=== PATIENT | female | born 1940 | race Caucasian/White ===

== ENCOUNTER 2021-12-24 11:14 | Outpatient (CLI) | payer MEDICARE | END 2021-12-24 11:15 | disposition home or self-care (01) | LOC: BICMAMMO 11:14 | PROVIDERS: ATTEND Nurse Practitioner Family | DX: Z13.820 Encounter for screening for osteoporosis (principal); M85.89 Other specified disorders of bone density and structure, multiple sites | CPT/HCPCS: 77080 ==

== ENCOUNTER 2023-06-18 15:17 | Outpatient (CLI) | payer MEDICARE ==
[2023-06-18 17:03] LABS: Anion Gap 13 mmol/L (10-20); BUN (Urea Nitrogen) 15 mg/dL (9.8-20.1); Calc. Creatinine Clearance 0 mL/min (70-130); Calcium 10.2 mg/dL (7.8-10.44); Carbon Dioxide 27 mmol/L (23-31); Chloride 99 mmol/L (98-107); Estimated GFR 55; Glucose 95 mg/dL (83-110); Potassium 3.8 mmol/L (3.5-5.1); Sodium 135 mmol/L (136-145)
== END 2023-06-18 15:18 | disposition home or self-care (01) ==
LOC: LABBT 15:17
PROVIDERS: ATTEND Neurological Surgery
DX: Z01.818 Encounter for other preprocedural examination (principal); M43.16 Spondylolisthesis, lumbar region; M48.061 Spinal stenosis, lumbar region without neurogenic claudication
CPT/HCPCS: 80048; 85027; 85610; 85730; 86850; 86900; 86901; 93005; 93010

== ENCOUNTER 2023-06-19 06:06 | Inpatient (IN) | payer MEDICARE ==
[2023-06-18 16:50] LABS: Hematocrit 37.9 % (34.9-44.5); Hemoglobin 13.1 g/dL (12.0-15.5); Mean Corpuscular HGB CONC 34.6 g/dL (32.0-36.0); Mean Corpuscular Hemoglobin 31.3 pg (27.0-33.0); Mean Corpuscular Volume 90.7 fl (81.6-98.3); Mean Platelet Volume 10.7 fl (7.4-10.4); Platelet Count 288 10x3/uL (150-450); RBC Distribution Width 13.3 % (11.5-14.5); Red Blood Cell (RBC) Count 4.18 10x6/uL (3.90-5.03); White Blood Cell (WBC) Count 6.3 10x3/uL (3.5-10.5)
[2023-06-18 17:07] LABS: INR-International Normal Ratio 0.9; PTT 28.7 sec (22.0-33.0); Prothrombin Time 10.2 sec (9.5-12.1)
[2023-06-19] MEDS ORDERED: Thrombin 5000 UNITS/5 ML VIAL ONE ×2 (06:13→10:41)
[2023-06-19] MEDS ORDERED: Vancomycin 1 GM VIAL ONE ×2 (06:13→06:47)
[2023-06-19] MEDS ORDERED: EPINEPHrine 1 MG/ML AMP ONE (06:25)
[2023-06-19] MEDS ORDERED: Bupivacaine PF 0.5% 30 ML VIAL ONE (06:25)
[2023-06-19] MEDS ORDERED: LevoFLOXacin 500 mg/D5W 100 ML BAG ONE (06:44)
[2023-06-19] MEDS ORDERED: Clindamycin/D5W 900 mg/50 ml Premix Bag ONE (06:44)
[2023-06-19] MEDS ORDERED: Albuterol HFA (OR) 200 PUFF INH ONE (06:55)
[2023-06-19] MEDS ORDERED: SUGAMMADEX SODIUM 200 MG/2 ML VIAL ONE (06:55)
[2023-06-19] MEDS ORDERED: Albumin 5% 500 ML ONE (06:55)
[2023-06-19] MEDS ORDERED: Fentanyl 250 MCG/5 ML VIAL ONE ×2 (06:55→13:02)
[2023-06-19] MEDS ORDERED: HYDROmorphone 0.5 MG/0.5 ML SYRINGE ONE (06:55)
[2023-06-19] MEDS ORDERED: Ondansetron PF 4 MG/2 ML Vial ONE (07:10)
[2023-06-19] MEDS ORDERED: NEOSTIGMINE 3 MG/3 ML SYR 3 MG/3 ML SYRINGE ONE (07:10)
[2023-06-19] MEDS ORDERED: Dexamethasone 20 MG/5 ML VIAL ONE (07:10)
[2023-06-19] MEDS ORDERED: Glycopyrrolate 0.2 MG/ML 5 ML SYRINGE ONE (07:10)
[2023-06-19] MEDS ORDERED: Lidocaine 1% PF 5 ML VIAL ONE (07:10)
[2023-06-19] MEDS ORDERED: Vecuronium 10 MG VIAL ONE (07:10)
[2023-06-19] MEDS ORDERED: Rocuronium Bromide 10 MG/ML (10ML VIAL) ONE (07:10)
[2023-06-19] MEDS ORDERED: PROPOFOL 200 MG/20 ML VIAL ONE (07:10)
[2023-06-19] MEDS ORDERED: Phenylephrine 10 MG/ML VIAL ONE (08:03)
[2023-06-19] MEDS ORDERED: Promethazine HCl 25 MG/ML VIAL IM PRN ×2 (12:41→12:58)
[2023-06-19] MEDS ORDERED: Ondansetron HCl/PF 4 MG/2 ML Vial IVP PRN (12:41)
[2023-06-19] MEDS ORDERED: Milk Of Magnesia 30 ML UDCUP PO PRN (12:58)
[2023-06-19] MEDS ORDERED: Acetaminophen 325 MG TAB PO PRN (12:58)
[2023-06-19] MEDS ORDERED: Morphine 2 MG/ML VIAL SLOW IVP PRN (12:58)
[2023-06-19] MEDS ORDERED: Ondansetron PF 4 MG/2 ML Vial IVP PRN (12:58)
[2023-06-19] MEDS ORDERED: Bisacodyl 10 MG SUPP PR PRN (12:58)
[2023-06-19] MEDS ORDERED: tiZANidine HCl 4 MG TAB PO PRN (13:00)
[2023-06-19 14:41] VITALS: BMI 27.7
[2023-06-19] MEDS: CEFAZOLIN 2 GM in Sodium Chloride 0.9% 100 ML IVPB SCH ×2 (14:59→21:02)
[2023-06-19] MEDS ORDERED: Albuterol 200 PUFF (6.7GM INHALER) INH PRN (15:47)
[2023-06-19] MEDS ORDERED: HumaLOG 300 UNITS/3 ML VIAL SC PRN ×2 (15:49)
[2023-06-19] MEDS ORDERED: Dextrose 5% in Water 1,000 ML IV PRN (15:49)
[2023-06-19] MEDS ORDERED: Dextrose 50% Abboject 50 ML SYRINGE SLOW IVP PRN (15:49)
[2023-06-19] MEDS ORDERED: Glucagon 1 MG/ML KIT IM PRN (15:49)
[2023-06-19] MEDS: Gabapentin 400 MG CAP PO SCH ×2 (16:07→21:04)
[2023-06-19] MEDS: HYDROcodone/Acetaminophen 10/325 mg Tablet PO PRN (16:08)
[2023-06-19] MEDS: Sodium Chloride 0.9% 1,000 ML IV SCH (16:08)
[2023-06-19] MEDS ORDERED: Non-Formulary Item 1 EACH (Omeprazole Magnesium [Omeprazole Magnesium] 20 MG Capsule.Dr) PO SCH (21:00)
[2023-06-19] MEDS ORDERED: Atorvastatin Calcium 20 MG TAB PO SCH (21:00)
[2023-06-19] MEDS: Montelukast Sodium 10 mg Tablet PO SCH (21:04)
[2023-06-19] MEDS: HYDROcodone/Acetaminophen 7.5/325 mg Tablet PO PRN (21:06)
[2023-06-20] MEDS: Sodium Chloride 0.9% 1,000 ML IV SCH ×2 (03:47→17:03)
[2023-06-20] MEDS: Gabapentin 400 MG CAP PO SCH ×4 (04:47→21:15)
[2023-06-20] MEDS ORDERED: CEFAZOLIN 2 GM in Sodium Chloride 0.9% 100 ML IVPB SCH (05:00)
[2023-06-20 05:17] LABS: #Neutrophils 11.1 thou/uL (1.40-6.50); %Basophils 0.1 % (0.0-1.0); %Lymphocytes 7.4 % (21.0-51.0); %Monocytes 7.9 % (0.0-10.0); %Neutrophils 84.2 % (42.0-75.0); Hematocrit 26.1 % (36.0-47.0); Hemoglobin 8.5 g/dL (12.0-16.0); Mean Corpuscular HGB CONC 32.6 g/dL (32.0-36.0); Mean Corpuscular Hemoglobin 30.5 pg (27.0-31.0); Mean Corpuscular Volume 93.5 fl (78.0-98.0); Mean Platelet Volume 10.6 fL (7.4-10.4); Platelet Count 192 10x3/uL (130-400); RBC Distribution Width 13.7 % (11.5-14.5); Red Blood Cell (RBC) Count 2.79 mill/uL (4.20-5.40); White Blood Cell (WBC) Count 13.2 10x3/uL (4.8-10.8)
[2023-06-20 05:59] LABS: Anion Gap 12 mmol/L (10-20); BUN (Urea Nitrogen) 16 mg/dL (9.8-20.1); Calc. Creatinine Clearance 40 mL/min (70-130); Calcium 9.8 mg/dL (7.8-10.44); Carbon Dioxide 26 mmol/L (23-31); Chloride 98 mmol/L (98-107); Estimated GFR 49; Glucose 159 mg/dL (83-110); Magnesium 1.3 mg/dL (1.6-2.6); Potassium 3.8 mmol/L (3.5-5.1); Sodium 132 mmol/L (136-145)
[2023-06-20] MEDS: Mometasone 200 MCG HFA INHALER (RT USE) INH SCH ×2 (07:26→19:26)
[2023-06-20] MEDS ORDERED: Magnesium Sulfate 4 GM in Sodium Chloride 0.9% 250 ML 250 ML IVPB SCH (07:45)
[2023-06-20] MEDS ORDERED: Magnesium Sulfate In Water 4 GM in Premix 1 BAG IVPB SCH (08:00)
[2023-06-20] MEDS: Glimepiride 1 MG TAB PO SCH (08:34)
[2023-06-20] MEDS: HYDROcodone/Acetaminophen 7.5/325 mg Tablet PO PRN ×3 (08:34→17:03)
[2023-06-20] MEDS ORDERED: Hydrochlorothiazide 25 MG TAB PO SCH (09:00)
[2023-06-20] MEDS ORDERED: Lisinopril 20 MG TAB PO SCH (09:00)
[2023-06-20] MEDS ORDERED: Aspirin 81 mg Enteric Coated Tablet PO SCH (09:30)
[2023-06-20] MEDS ORDERED: Iopamidol-370 76% 500 ML MDV (1 ML CHARGE) ONE (10:38)
[2023-06-20 11:30] LABS: Magnesium 1.3 mg/dL (1.6-2.6)
[2023-06-20] MEDS ORDERED: Electrolyte Replacement Protocol FS PRN (12:15)
[2023-06-20] MEDS ORDERED: Electrolyte Replacement Protocol 1 EACH FS SCH (12:15)
[2023-06-20] MEDS ORDERED: Magnesium 2 GM/50 ML(in water) 2 GM in Premix 1 BAG IVPB SCH (17:00)
[2023-06-20] MEDS ORDERED: Atorvastatin Calcium 40 MG TAB PO SCH (21:00)
[2023-06-20] MEDS: Montelukast Sodium 10 mg Tablet PO SCH (21:15)
[2023-06-20] MEDS: HYDROcodone/Acetaminophen 10/325 mg Tablet PO PRN (21:15)
[2023-06-21] MEDS: HYDROcodone/Acetaminophen 7.5/325 mg Tablet PO PRN ×3 (03:43→14:55)
[2023-06-21] MEDS: Gabapentin 400 MG CAP PO SCH ×4 (05:29→14:55)
[2023-06-21] MEDS: Sodium Chloride 0.9% 1,000 ML IV SCH (05:32)
[2023-06-21] MEDS: Mometasone 200 MCG HFA INHALER (RT USE) INH SCH (06:49)
[2023-06-21 08:22] LABS: Hematocrit 33.8 % (36.0-47.0); Hemoglobin 11.1 g/dL (12.0-16.0); Platelet Count 189 10x3/uL (130-400)
[2023-06-21 08:32] LABS: Hemoglobin A1c 5.1 % (4.0-6.0)
[2023-06-21 08:44] LABS: Phosphorus 2.6 mg/dL (2.3-4.7)
[2023-06-21 08:45] LABS: Anion Gap 15 mmol/L (10-20); BUN (Urea Nitrogen) 16 mg/dL (9.8-20.1); Calc. Creatinine Clearance 39 mL/min (70-130); Calcium 9.9 mg/dL (7.8-10.44); Carbon Dioxide 26 mmol/L (23-31); Cardiac Risk 2.5 (Less than 4.5); Chloride 99 mmol/L (98-107); Cholesterol 174 mg/dl (< 200 Desired); Estimated GFR 48; Glucose 115 mg/dL (83-110); HDL Cholesterol 70 mg/dL (>60 Neg Risk); LDL Cholesterol, Calculated 82 mg/dL; Potassium 3.6 mmol/L (3.5-5.1); Sodium 136 mmol/L (136-145); Triglycerides 110 mg/dL (Less than 150)
[2023-06-21] MEDS ORDERED: Aspirin 81 mg Enteric Coated Tablet PO SCH (09:00)
[2023-06-21] MEDS: Glimepiride 1 MG TAB PO SCH (09:49)
[2023-06-21 16:13] VITALS: BP 117/61; TEMP 99
== END 2023-06-21 17:50 | disposition home or self-care (01) | DRG 453 ==
LOC: SDC 06:06 → SURG A 12:58 → 2SE 06-20 09:30 → OBSVTOIN 06-20 13:35
PROVIDERS: ADMIT Neurological Surgery; ATTEND Neurological Surgery
PROC: 0SG00AJ Fusion of Lumbar Vertebral Joint with Interbody Fusion Device, Posterior Approach, Anterior Column, Open Approach (ICD-10-PCS; principal; 2023-06-19)
PROC: 0SG0071 Fusion of Lumbar Vertebral Joint with Autologous Tissue Substitute, Posterior Approach, Posterior Column, Open Approach (ICD-10-PCS; 2023-06-19)
PROC: 0SG30AJ Fusion of Lumbosacral Joint with Interbody Fusion Device, Posterior Approach, Anterior Column, Open Approach (ICD-10-PCS; 2023-06-19)
PROC: 0SB20ZZ Excision of Lumbar Vertebral Disc, Open Approach (ICD-10-PCS; 2023-06-19)
PROC: 0SB40ZZ Excision of Lumbosacral Disc, Open Approach (ICD-10-PCS; 2023-06-19)
PROC: 3E033XZ Introduction of Vasopressor into Peripheral Vein, Percutaneous Approach (ICD-10-PCS; 2023-06-19)
PROC: 30233J1 Transfusion of Nonautologous Serum Albumin into Peripheral Vein, Percutaneous Approach (ICD-10-PCS; 2023-06-19)
PROC: 0SG3071 Fusion of Lumbosacral Joint with Autologous Tissue Substitute, Posterior Approach, Posterior Column, Open Approach (ICD-10-PCS; 2023-06-19)
PROC: 30233N1 Transfusion of Nonautologous Red Blood Cells into Peripheral Vein, Percutaneous Approach (ICD-10-PCS; 2023-06-20)
DX: M48.061 Spinal stenosis, lumbar region without neurogenic claudication (principal); I63.512 Cerebral infarction due to unspecified occlusion or stenosis of left middle cerebral artery; D62 Acute posthemorrhagic anemia; E87.1 Hypo-osmolality and hyponatremia; E83.42 Hypomagnesemia; I95.9 Hypotension, unspecified; M48.07 Spinal stenosis, lumbosacral region; M43.16 Spondylolisthesis, lumbar region; I10 Essential (primary) hypertension; E11.22 Type 2 diabetes mellitus with diabetic chronic kidney disease; G89.29 Other chronic pain; J45.909 Unspecified asthma, uncomplicated; H40.9 Unspecified glaucoma; Z98.41 Cataract extraction status, right eye; Z98.42 Cataract extraction status, left eye; Z98.51 Tubal ligation status; Z98.890 Other specified postprocedural states; Z90.710 Acquired absence of both cervix and uterus; Z90.89 Acquired absence of other organs; Z83.3 Family history of diabetes mellitus; Z82.49 Family history of ischemic heart disease and other diseases of the circulatory system; E78.00 Pure hypercholesterolemia, unspecified
CPT/HCPCS: 36415; 36416; 36430; 70450; 70496; 70498; 70551; 80048; 80061; 83036; 83735; 84100; 85014; 85018; 85025; 85027; 85049; 85610; 85730; 86850; 86900; 86901; 93306; 96365; 96367; A4314; C1713; C1889; G0378; J0171; J1100; J1170; J1815; J1956; J2370; J2405; J2704; J3010; J3370; J3475; J3490; J7050; P9016; P9045; Q9967; S0020

== ENCOUNTER 2023-06-22 11:06 | Inpatient (IN) | payer MEDICARE ==
[2023-06-22] MEDS ORDERED: HYDROcodone/Acetaminophen 5/325 mg Tablet ONE (11:50)
[2023-06-22] MEDS ORDERED: Aspirin Chewable 81 MG TAB ONE ×3 (11:51→11:59)
[2023-06-22 12:07] LABS: #Basophils 0.1 thou/uL (0.0-0.2); #Eosinphils 0.3 thou/uL (0.0-0.7); #Monocytes 1.4 thou/uL (0.11-0.59); #Neutrophils 8.7 thou/uL (1.40-6.50); %Basophils 0.4 % (0.0-1.0); %Eosinophils 2.4 % (0.0-10.0); %Monocytes 11.2 % (0.0-10.0); %Neutrophils 72.4 % (42.0-75.0); Hematocrit 33.4 % (36.0-47.0); Hemoglobin 10.9 g/dL (12.0-16.0); Mean Corpuscular HGB CONC 32.6 g/dL (32.0-36.0); Mean Corpuscular Hemoglobin 30.6 pg (27.0-31.0); Mean Corpuscular Volume 93.8 fl (78.0-98.0); Mean Platelet Volume 10.6 fL (7.4-10.4); Platelet Count 221 10x3/uL (130-400); RBC Distribution Width 15.9 % (11.5-14.5); Red Blood Cell (RBC) Count 3.56 mill/uL (4.20-5.40)
[2023-06-22 12:29] LABS: ALT (SGPT) 10 U/L (8-55); AST (SGOT) 33 U/L (5-34); Albumin 3.9 g/dL (3.4-4.8); Alkaline Phosphatase 46 U/L (40-110); Anion Gap 9 mmol/L (10-20); BUN (Urea Nitrogen) 18 mg/dL (9.8-20.1); Bilirubin, Total 1.3 mg/dL (0.2-1.2); Calc. Creatinine Clearance 0 mL/min (70-130); Calcium 9.8 mg/dL (7.8-10.44); Carbon Dioxide 30 mmol/L (23-31); Chloride 99 mmol/L (98-107); Estimated GFR 45; Globulin 2.6 g/dL (2.4-3.5); Glucose 83 mg/dL (83-110); Potassium 3.7 mmol/L (3.5-5.1); Protein, Total 6.5 g/dL (5.8-8.1); Sodium 134 mmol/L (136-145)
[2023-06-22 12:47] LABS: Prothrombin Time 13.9 sec (12.0-14.7)
[2023-06-22 12:48] LABS: PTT 53.6 sec (22.9-36.1)
[2023-06-22] MEDS ORDERED: hydrALAZINE 20 MG/ML VIAL SLOW IVP PRN (15:52)
[2023-06-22] MEDS ORDERED: Acetaminophen 650 MG Suppository PR PRN (15:52)
[2023-06-22] MEDS ORDERED: Dextrose 5% in Water 1,000 ML IV PRN (16:01)
[2023-06-22] MEDS ORDERED: Dextrose 50% Abboject 50 ML SYRINGE SLOW IVP PRN (16:01)
[2023-06-22] MEDS ORDERED: Glucagon 1 MG/ML KIT IM PRN (16:01)
[2023-06-22] MEDS ORDERED: Insulin Regular 300 UNITS/3 ML VIAL SC PRN ×2 (16:01)
[2023-06-22] MEDS ORDERED: Acetaminophen 325 MG TAB ONE ×2 (16:29→16:33)
[2023-06-22] MEDS ORDERED: Gabapentin 400 MG CAP ONE (16:29)
[2023-06-22] MEDS: Acetaminophen 325 MG TAB PO PRN ×2 (16:31→21:36)
[2023-06-22] MEDS: Gabapentin 400 MG CAP PO SCH ×2 (16:32→22:18)
[2023-06-22 19:55] VITALS: BMI 28.3
[2023-06-22] MEDS ORDERED: Atorvastatin Calcium 40 MG TAB PO SCH (21:00)
[2023-06-22] MEDS: Mometasone 200 MCG HFA INHALER (RT USE) INH SCH (21:29)
[2023-06-22] MEDS: Montelukast Sodium 10 mg Tablet PO SCH (21:36)
[2023-06-22] MEDS: Atorvastatin Calcium 40 MG TAB PO SCH (21:36)
[2023-06-23] MEDS: Gabapentin 400 MG CAP PO SCH ×4 (03:48→22:39)
[2023-06-23 05:16] LABS: #Eosinphils 0.4 thou/uL (0.0-0.7); #Monocytes 1.2 thou/uL (0.11-0.59); #Neutrophils 4.8 thou/uL (1.40-6.50); %Basophils 0.5 % (0.0-1.0); %Eosinophils 4.9 % (0.0-10.0); %Lymphocytes 19.3 % (21.0-51.0); %Monocytes 14.6 % (0.0-10.0); %Neutrophils 60.1 % (42.0-75.0); Hematocrit 32.3 % (36.0-47.0); Hemoglobin 10.7 g/dL (12.0-16.0); Mean Corpuscular HGB CONC 33.1 g/dL (32.0-36.0); Mean Corpuscular Volume 93.6 fl (78.0-98.0); Mean Platelet Volume 10.4 fL (7.4-10.4); Platelet Count 234 10x3/uL (130-400); RBC Distribution Width 15.4 % (11.5-14.5); Red Blood Cell (RBC) Count 3.45 mill/uL (4.20-5.40)
[2023-06-23 05:41] LABS: Anion Gap 14 mmol/L (10-20); BUN (Urea Nitrogen) 16 mg/dL (9.8-20.1); Calc. Creatinine Clearance 47 mL/min (70-130); Calcium 9.4 mg/dL (7.8-10.44); Carbon Dioxide 27 mmol/L (23-31); Cardiac Risk 2.5 (Less than 4.5); Chloride 101 mmol/L (98-107); Cholesterol 155 mg/dl (< 200 Desired); Estimated GFR 54; Glucose 87 mg/dL (83-110); HDL Cholesterol 61 mg/dL (>60 Neg Risk); LDL Cholesterol, Calculated 75 mg/dL; Potassium 3.7 mmol/L (3.5-5.1); Sodium 138 mmol/L (136-145); Triglycerides 95 mg/dL (Less than 150)
[2023-06-23] MEDS ORDERED: Acetaminophen/Codeine 30-300mg Tablet PO PRN (06:27)
[2023-06-23] MEDS: Mometasone 200 MCG HFA INHALER (RT USE) INH SCH ×2 (07:54→18:55)
[2023-06-23] MEDS ORDERED: Aspirin 81 mg Enteric Coated Tablet PO SCH (09:00)
[2023-06-23] MEDS: Aspirin 325 mg Enteric Coated Tablet PO SCH (09:32)
[2023-06-23] MEDS ORDERED: LevoFLOXacin 500 mg/D5W 500 MG in Premix 1 BAG IVPB SCH (13:45)
[2023-06-23] MEDS ORDERED: Clindamycin/D5W 900 MG in Premix 1 BAG IVPB SCH (13:45)
[2023-06-23] MEDS ORDERED: fentaNYL PF 100 MCG/2 ML SYRINGE ONE (15:35)
[2023-06-23] MEDS ORDERED: Phenylephrine 10 MG/ML VIAL ONE (15:36)
[2023-06-23] MEDS ORDERED: Thrombin 5000 UNITS/5 ML VIAL ONE (19:05)
[2023-06-23] MEDS ORDERED: Clindamycin/D5W 900 mg/50 ml Premix Bag ONE (19:10)
[2023-06-23] MEDS ORDERED: LevoFLOXacin 500 mg/D5W 100 ML BAG ONE (19:10)
[2023-06-23] MEDS ORDERED: Vancomycin 1 GM VIAL ONE ×2 (19:12→20:33)
[2023-06-23] MEDS ORDERED: Ondansetron PF 4 MG/2 ML Vial ONE (19:55)
[2023-06-23] MEDS ORDERED: Dexamethasone 20 MG/5 ML VIAL ONE (19:55)
[2023-06-23] MEDS ORDERED: PHENYLEPHRINE-NS 100 MCG/ML 10 ML SYRINGE ONE (19:55)
[2023-06-23] MEDS ORDERED: PROPOFOL 200 MG/20 ML VIAL ONE (19:55)
[2023-06-23] MEDS ORDERED: Rocuronium Bromide 10 MG/ML (10ML VIAL) ONE (19:55)
[2023-06-23] MEDS ORDERED: Lidocaine 1% PF 5 ML VIAL ONE (19:55)
[2023-06-23] MEDS ORDERED: EPINEPHrine 1 MG/ML AMP ONE (20:29)
[2023-06-23] MEDS ORDERED: Bupivacaine PF 0.5% 30 ML VIAL ONE (20:29)
[2023-06-23] MEDS ORDERED: Ondansetron HCl/PF 4 MG/2 ML Vial IVP PRN (20:32)
[2023-06-23] MEDS ORDERED: Promethazine HCl 25 MG/ML VIAL IM PRN (20:32)
[2023-06-23] MEDS ORDERED: SUGAMMADEX SODIUM 200 MG/2 ML VIAL ONE (20:34)
[2023-06-23] MEDS: Acetaminophen 325 MG TAB PO PRN (22:39)
[2023-06-23] MEDS: Atorvastatin Calcium 40 MG TAB PO SCH (22:39)
[2023-06-23] MEDS: Montelukast Sodium 10 mg Tablet PO SCH (22:40)
[2023-06-24] MEDS: Gabapentin 400 MG CAP PO SCH ×4 (05:37→21:06)
[2023-06-24] MEDS ORDERED: Clindamycin/D5W 900 MG in Premix 1 BAG IVPB SCH ×2 (06:00→14:00)
[2023-06-24] MEDS: Mometasone 200 MCG HFA INHALER (RT USE) INH SCH ×2 (06:21→18:57)
[2023-06-24] MEDS: Aspirin 325 mg Enteric Coated Tablet PO SCH (09:50)
[2023-06-24] MEDS ORDERED: Acetaminophen 325 MG TAB PO PRN (14:45)
[2023-06-24] MEDS: Clindamycin 150 MG CAP PO SCH ×2 (15:18→21:06)
[2023-06-24] MEDS: Acetaminophen 325 MG TAB PO SCH ×2 (17:21→23:47)
[2023-06-24 17:39] LABS: INR-International Normal Ratio 1.1; PTT 47.5 sec (22.9-36.1); Prothrombin Time 14.3 sec (12.0-14.7)
[2023-06-24] MEDS ORDERED: LevoFLOXacin 500 mg/D5W 500 MG in Premix 1 BAG IVPB SCH (18:00)
[2023-06-24 20:26] LABS: PT - Undiluted 14.3 sec (12.0-14.7); PT 1:1 37C-90 min. Incubation 13.1 sec (12.0-14.7); PTT - Undiluted 47.5 sec (22.9-36.1); PTT 1:1 Mix 34.4 sec (22.9-36.1)
[2023-06-24] MEDS: Atorvastatin Calcium 40 MG TAB PO SCH (21:06)
[2023-06-24] MEDS: Montelukast Sodium 10 mg Tablet PO SCH (21:06)
[2023-06-25] MEDS: Gabapentin 400 MG CAP PO SCH ×4 (03:27→21:07)
[2023-06-25] MEDS: Acetaminophen 325 MG TAB PO SCH ×4 (06:13→23:02)
[2023-06-25] MEDS: Clindamycin 150 MG CAP PO SCH ×3 (06:13→21:07)
[2023-06-25] MEDS: Mometasone 200 MCG HFA INHALER (RT USE) INH SCH ×2 (08:18→19:14)
[2023-06-25] MEDS: Aspirin 325 mg Enteric Coated Tablet PO SCH (10:01)
[2023-06-25] MEDS: Calcium Carbonate 500 MG ChewTAB PO PRN (16:20)
[2023-06-25] MEDS: Atorvastatin Calcium 40 MG TAB PO SCH (21:07)
[2023-06-25] MEDS: Montelukast Sodium 10 mg Tablet PO SCH (21:07)
[2023-06-26] MEDS: Gabapentin 400 MG CAP PO SCH ×4 (04:45→22:59)
[2023-06-26] MEDS: Acetaminophen 325 MG TAB PO SCH ×4 (06:28→22:59)
[2023-06-26] MEDS: Clindamycin 150 MG CAP PO SCH ×3 (06:29→20:59)
[2023-06-26] MEDS: Mometasone 200 MCG HFA INHALER (RT USE) INH SCH ×2 (07:33→19:45)
[2023-06-26] MEDS: Aspirin 325 mg Enteric Coated Tablet PO SCH (08:41)
[2023-06-26] MEDS ORDERED: Scopolamine 1 mg/72 hour Patch TOP PRN (13:51)
[2023-06-26] MEDS ORDERED: LevoFLOXacin 750 mg/D5W 750 MG in Premix 1 BAG IVPB SCH (18:00)
[2023-06-26] MEDS: Montelukast Sodium 10 mg Tablet PO SCH (20:59)
[2023-06-26] MEDS: Atorvastatin Calcium 40 MG TAB PO SCH (20:59)
[2023-06-26] MEDS: Calcium Carbonate 500 MG ChewTAB PO PRN (21:07)
[2023-06-26] MEDS: Ondansetron PF 4 MG/2 ML Vial IVP PRN (21:31)
[2023-06-27] MEDS: Gabapentin 400 MG CAP PO SCH ×5 (03:33→21:21)
[2023-06-27] MEDS: Acetaminophen 325 MG TAB PO SCH ×3 (06:10→17:13)
[2023-06-27] MEDS: Ondansetron ODT 4 MG TAB PO PRN (06:10)
[2023-06-27] MEDS: Clindamycin 150 MG CAP PO SCH ×3 (06:11→21:21)
[2023-06-27] MEDS: Mometasone 200 MCG HFA INHALER (RT USE) INH SCH ×2 (07:33→20:18)
[2023-06-27] MEDS: Aspirin 325 mg Enteric Coated Tablet PO SCH (09:09)
[2023-06-27] MEDS: Ondansetron PF 4 MG/2 ML Vial IVP PRN (14:06)
[2023-06-27] MEDS: Montelukast Sodium 10 mg Tablet PO SCH (21:20)
[2023-06-27] MEDS: Atorvastatin Calcium 40 MG TAB PO SCH (21:20)
[2023-06-28] MEDS: Acetaminophen 325 MG TAB PO SCH ×4 (00:40→18:27)
[2023-06-28] MEDS: Ondansetron ODT 4 MG TAB PO PRN (04:06)
[2023-06-28] MEDS: Gabapentin 400 MG CAP PO SCH ×4 (04:07→22:39)
[2023-06-28] MEDS: Clindamycin 150 MG CAP PO SCH ×2 (06:31→15:29)
[2023-06-28] MEDS: Mometasone 200 MCG HFA INHALER (RT USE) INH SCH ×2 (07:35→17:41)
[2023-06-28] MEDS ORDERED: Promethazine HCl 12.5 MG in Sodium Chloride 0.9% 50 ML IVPB PRN (07:50)
[2023-06-28] MEDS: Aspirin 325 mg Enteric Coated Tablet PO SCH (08:50)
[2023-06-28 14:54] LABS: #Basophils 0.1 thou/uL (0.0-0.2); #Eosinphils 0.4 thou/uL (0.0-0.7); #Neutrophils 4.7 thou/uL (1.40-6.50); %Basophils 0.7 % (0.0-1.0); %Eosinophils 5.5 % (0.0-10.0); %Lymphocytes 21.8 % (21.0-51.0); %Monocytes 12.4 % (0.0-10.0); %Neutrophils 58.6 % (42.0-75.0); Hematocrit 36.5 % (36.0-47.0); Hemoglobin 11.9 g/dL (12.0-16.0); Mean Corpuscular HGB CONC 32.6 g/dL (32.0-36.0); Mean Corpuscular Hemoglobin 30.4 pg (27.0-31.0); Mean Corpuscular Volume 93.1 fl (78.0-98.0); Mean Platelet Volume 9.8 fL (7.4-10.4); Platelet Count 357 10x3/uL (130-400); RBC Distribution Width 14.5 % (11.5-14.5); Red Blood Cell (RBC) Count 3.92 mill/uL (4.20-5.40)
[2023-06-28 15:16] LABS: Anion Gap 15 mmol/L (10-20); BUN (Urea Nitrogen) 13 mg/dL (9.8-20.1); Calc. Creatinine Clearance 43 mL/min (70-130); Calcium 10.1 mg/dL (7.8-10.44); Carbon Dioxide 26 mmol/L (23-31); Chloride 99 mmol/L (98-107); Estimated GFR 50; Glucose 98 mg/dL (83-110); Potassium 3.8 mmol/L (3.5-5.1); Sodium 136 mmol/L (136-145)
[2023-06-28] MEDS: Calcium Carbonate 500 MG ChewTAB PO PRN (15:32)
[2023-06-28] MEDS: LevoFLOXacin 750 MG TAB PO SCH ×2 (18:27→18:31)
[2023-06-28] MEDS: Montelukast Sodium 10 mg Tablet PO SCH (22:40)
[2023-06-28] MEDS: Atorvastatin Calcium 40 MG TAB PO SCH (22:40)
[2023-06-29] MEDS: Acetaminophen 325 MG TAB PO SCH ×4 (01:13→17:36)
[2023-06-29] MEDS: Gabapentin 400 MG CAP PO SCH ×4 (05:22→21:25)
[2023-06-29] MEDS: Calcium Carbonate 500 MG ChewTAB PO PRN ×2 (06:33→21:24)
[2023-06-29] MEDS: Ondansetron PF 4 MG/2 ML Vial IVP PRN (06:33)
[2023-06-29] MEDS ORDERED: Ondansetron ODT 4 MG TAB PO PRN (06:39)
[2023-06-29] MEDS: Mometasone 200 MCG HFA INHALER (RT USE) INH SCH ×2 (07:59→18:58)
[2023-06-29] MEDS: Aspirin 325 mg Enteric Coated Tablet PO SCH (09:30)
[2023-06-29] MEDS: Sulfameth/Trimethoprim DS 800-160mg TAB PO SCH ×2 (09:32→21:24)
[2023-06-29 17:36] LABS: Bilirubin Negative (Negative); Blood, Urine Negative (Negative); Clarity Clear (Clear); Glucose, Urine (Dipstick) Normal (Negative); Ketone, Urine 10 mg/dL (Negative); Leukocyte Negative Leu/uL (Negative); Nitrite Negative (Negative); Protein, Urine (Dipstick) Negative (Neg-Trace); Specific Gravity, Urine 1.015 (1.002-1.036); Urobilinogen Normal mg/dL (Less than 2); pH, Urine 6.5 (5.0-9.0)
[2023-06-29] MEDS: Atorvastatin Calcium 40 MG TAB PO SCH (21:24)
[2023-06-29] MEDS: Montelukast Sodium 10 mg Tablet PO SCH (21:24)
[2023-06-30] MEDS: Acetaminophen 325 MG TAB PO SCH ×2 (00:45→06:19)
[2023-06-30] MEDS: diphenhydrAMINE 30 GM TUBE TOP PRN ×2 (04:29→09:33)
[2023-06-30] MEDS: Gabapentin 400 MG CAP PO SCH ×2 (04:29→09:22)
[2023-06-30] MEDS ORDERED: LevoFLOXacin 750 MG TAB PO SCH (06:00)
[2023-06-30] MEDS: Mometasone 200 MCG HFA INHALER (RT USE) INH SCH (07:48)
[2023-06-30 08:37] VITALS: BP 163/81; TEMP 97.7
[2023-06-30 09:13] LABS: Prothrombin Time 13.9 sec (12.0-14.7)
[2023-06-30 09:14] LABS: PTT 33.7 sec (22.9-36.1)
[2023-06-30] MEDS: Aspirin 325 mg Enteric Coated Tablet PO SCH (09:22)
[2023-06-30] MEDS: Sulfameth/Trimethoprim DS 800-160mg TAB PO SCH (09:22)
== END 2023-06-30 12:44 | disposition home or self-care (01) | DRG 907 ==
LOC: ERS 11:06 → ERHOLD 14:28 → 2SW 20:08 → OBSVTOIN 06-23 12:37 → MSONC 06-24 16:19
PROVIDERS: ADMIT Hospitalist; ATTEND Internal Medicine
PROC: 4A00X4Z Measurement of Central Nervous Electrical Activity, External Approach (ICD-10-PCS; principal; 2023-06-23)
PROC: 00CU0ZZ Extirpation of Matter from Spinal Canal, Open Approach (ICD-10-PCS; 2023-06-23)
DX: G97.61 Postprocedural hematoma of a nervous system organ or structure following a nervous system procedure (principal); G95.19 Other vascular myelopathies; G97.63 Postprocedural seroma of a nervous system organ or structure following a nervous system procedure; R53.1 Weakness; R33.9 Retention of urine, unspecified; E11.9 Type 2 diabetes mellitus without complications; I10 Essential (primary) hypertension; E78.5 Hyperlipidemia, unspecified; G89.29 Other chronic pain; Z88.0 Allergy status to penicillin; Z79.899 Other long term (current) drug therapy; Z79.82 Long term (current) use of aspirin; J45.909 Unspecified asthma, uncomplicated; Z90.710 Acquired absence of both cervix and uterus; Z90.89 Acquired absence of other organs; Z98.890 Other specified postprocedural states; M54.50 Low back pain, unspecified; R79.1 Abnormal coagulation profile; R11.0 Nausea; T36.8X5A Adverse effect of other systemic antibiotics, initial encounter
CPT/HCPCS: 36415; 36416; 70450; 70551; 72148; 80048; 80053; 80061; 81003; 84443; 85025; 85240; 85250; 85610; 85611; 85730; 85732; 93005; 94760; 95711; 95819; 95957; G0378; J0171; J1100; J1956; J2370; J2405; J2550; J2704; J3370; J3490; Q0162; S0020

== ENCOUNTER 2023-07-31 12:13 | Inpatient (IN) | payer MEDICARE ==
[2023-07-31] MEDS ORDERED: Iopamidol-370 76% 500 ML MDV (1 ML CHARGE) ONE (13:54)
[2023-07-31] MEDS ORDERED: Metoclopramide HCl 10 MG (2 mL) VIAL ONE (13:57)
[2023-07-31] MEDS ORDERED: diphenhydrAMINE 50 MG/ML VIAL ONE (13:57)
[2023-07-31 14:07] LABS: #Eosinphils 0.1 thou/uL (0.0-0.7); #Monocytes 0.8 thou/uL (0.11-0.59); #Neutrophils 5.5 thou/uL (1.40-6.50); %Basophils 0.5 % (0.0-1.0); %Lymphocytes 17.8 % (21.0-51.0); %Monocytes 9.8 % (0.0-10.0); %Neutrophils 70.8 % (42.0-75.0); Hematocrit 43.5 % (36.0-47.0); Hemoglobin 14.2 g/dL (12.0-16.0); Mean Corpuscular HGB CONC 32.6 g/dL (32.0-36.0); Mean Corpuscular Hemoglobin 29.3 pg (27.0-31.0); Mean Corpuscular Volume 89.7 fl (78.0-98.0); Mean Platelet Volume 11.2 fL (7.4-10.4); Platelet Count 302 10x3/uL (130-400); Red Blood Cell (RBC) Count 4.85 mill/uL (4.20-5.40); White Blood Cell (WBC) Count 7.7 10x3/uL (4.8-10.8)
[2023-07-31 14:28] LABS: ALT (SGPT) 51 U/L (8-55); AST (SGOT) 67 U/L (5-34); Albumin 4.2 g/dL (3.4-4.8); Alkaline Phosphatase 109 U/L (40-110); Anion Gap 17 mmol/L (10-20); BUN (Urea Nitrogen) 10 mg/dL (9.8-20.1); Bilirubin, Total 1.3 mg/dL (0.2-1.2); Calc. Creatinine Clearance 0 mL/min (70-130); Calcium 11.1 mg/dL (7.8-10.44); Carbon Dioxide 29 mmol/L (23-31); Chloride 91 mmol/L (98-107); Estimated GFR 34; Globulin 3.8 g/dL (2.4-3.5); Glucose 141 mg/dL (83-110); Lipase 34 U/L (8-78); Potassium 3.1 mmol/L (3.5-5.1); Sodium 134 mmol/L (136-145)
[2023-07-31 14:32] LABS: Troponin I Less than 0.010 ng/mL (< 0.028)
[2023-07-31 15:57] LABS: Bacteria/HPF None Seen HPF (None Seen); Bilirubin Negative (Negative); Blood, Urine Negative (Negative); CAUTI Indications for Culture Pelvic or flank pain; Clarity Clear (Clear); Glucose, Urine (Dipstick) Normal (Negative); Ketone, Urine Negative (Negative); Leukocyte 25 Leu/uL (Negative); Nitrite Negative (Negative); Protein, Urine (Dipstick) Negative (Neg-Trace); RBC/HPF 0-3 HPF (0-3); Specific Gravity, Urine 1.004 (1.002-1.036); Squamous Epithelial 0-3 HPF (0-3); Urobilinogen Normal mg/dL (Less than 2); WBC/HPF 0-3 HPF (0-3)
[2023-07-31 16:01] LABS: Urine Culture Reflex No No
[2023-07-31] MEDS ORDERED: Vancomycin HCl 125 MG Capsule PO SCH ×2 (20:00)
[2023-07-31] MEDS ORDERED: Albuterol 200 PUFF (6.7GM INHALER) INH PRN (20:17)
[2023-07-31] MEDS: Gabapentin 400 MG CAP PO SCH (22:00)
[2023-07-31] MEDS: Dextrose 5%-Lactated Ringers 1,000 ML IV SCH (22:16)
[2023-07-31 22:43] VITALS: BMI 22.8
[2023-08-01] MEDS: Ondansetron PF 4 MG/2 ML Vial IVP PRN ×2 (00:15→09:38)
[2023-08-01] MEDS: Montelukast Sodium 10 mg Tablet PO SCH ×2 (00:16→22:15)
[2023-08-01] MEDS ORDERED: Promethazine 25 MG TAB PO SCH (02:00)
[2023-08-01] MEDS ORDERED: Promethazine HCl 12.5 MG in Sodium Chloride 0.9% 50 ML IVPB SCH (02:00)
[2023-08-01] MEDS: Vancomycin HCl 125 MG Capsule PO SCH ×4 (02:55→22:15)
[2023-08-01] MEDS: Gabapentin 400 MG CAP PO SCH ×4 (03:07→22:15)
[2023-08-01] MEDS ORDERED: Prochlorperazine Edisylate 10 MG in Sodium Chloride 0.9% 50 ML IVPB SCH (05:00)
[2023-08-01] MEDS: Mometasone 200 MCG HFA INHALER (RT USE) INH SCH ×2 (07:44→18:35)
[2023-08-01] MEDS ORDERED: Atorvastatin Calcium 40 MG TAB PO SCH (09:00)
[2023-08-01] MEDS: Dextrose 5%-Lactated Ringers 1,000 ML IV SCH ×3 (09:32→22:10)
[2023-08-01] MEDS: metroNIDAZOLE 500 MG in Premix 1 BAG IVPB SCH ×3 (13:57→23:26)
[2023-08-02] MEDS: Gabapentin 400 MG CAP PO SCH ×3 (01:22→13:13)
[2023-08-02] MEDS: Vancomycin HCl 125 MG Capsule PO SCH ×4 (01:22→20:12)
[2023-08-02] MEDS: metroNIDAZOLE 500 MG in Premix 1 BAG IVPB SCH ×3 (05:43→21:27)
[2023-08-02] MEDS: Mometasone 200 MCG HFA INHALER (RT USE) INH SCH ×2 (06:37→19:41)
[2023-08-02] MEDS: Dextrose 5%-Lactated Ringers 1,000 ML IV SCH (15:55)
[2023-08-02] MEDS: Montelukast Sodium 10 mg Tablet PO SCH (20:12)
[2023-08-02] MEDS ORDERED: hydrALAZINE 20 MG/ML VIAL SLOW IVP SCH (22:45)
[2023-08-03] MEDS: hydrOXYzine Pamoate 25 mg Capsule PO SCH ×2 (00:59→01:27)
[2023-08-03] MEDS: Vancomycin HCl 125 MG Capsule PO SCH ×4 (03:00→20:01)
[2023-08-03] MEDS ORDERED: Prochlorperazine Edisylate 10 MG in Sodium Chloride 0.9% 50 ML IVPB PRN (03:04)
[2023-08-03] MEDS: Dextrose 5%-Lactated Ringers 1,000 ML IV SCH ×2 (04:01→16:54)
[2023-08-03] MEDS: metroNIDAZOLE 500 MG in Premix 1 BAG IVPB SCH ×3 (05:26→22:10)
[2023-08-03 07:40] LABS: Anion Gap 14 mmol/L (10-20); BUN (Urea Nitrogen) 5 mg/dL (9.8-20.1); Calc. Creatinine Clearance 45 mL/min (70-130); Carbon Dioxide 26 mmol/L (23-31); Chloride 99 mmol/L (98-107); Sodium 137 mmol/L (136-145)
[2023-08-03 07:41] LABS: ALT (SGPT) 34 U/L (8-55); AST (SGOT) 35 U/L (5-34); Albumin 3.6 g/dL (3.4-4.8); Alkaline Phosphatase 94 U/L (40-110); Bilirubin, Total 1.3 mg/dL (0.2-1.2); Calcium 9.3 mg/dL (7.8-10.44); Estimated GFR 67; Globulin 3.2 g/dL (2.4-3.5); Glucose 145 mg/dL (83-110); Protein, Total 6.8 g/dL (5.8-8.1)
[2023-08-03] MEDS ORDERED: Lorazepam 2 MG/ML VIAL SLOW IVP SCH (07:45)
[2023-08-03 07:47] LABS: Potassium 2.4 mmol/L (3.5-5.1)
[2023-08-03] MEDS: Mometasone 200 MCG HFA INHALER (RT USE) INH SCH ×2 (08:00→18:54)
[2023-08-03] MEDS: Potassium Chloride 20 MEQ in Premix 1 BAG IVPB SCH ×4 (08:19→15:14)
[2023-08-03] MEDS ORDERED: Ondansetron PF 4 MG/2 ML Vial IVP SCH (12:15)
[2023-08-03] MEDS ORDERED: Metoclopramide HCl 10 MG (2 mL) VIAL IVP SCH (14:00)
[2023-08-03] MEDS ORDERED: Electrolyte Replacement Protocol 1 EACH FS SCH (17:34)
[2023-08-03] MEDS: Montelukast Sodium 10 mg Tablet PO SCH (20:01)
[2023-08-03] MEDS: Metoclopramide HCl 10 MG (2 mL) VIAL IVP SCH (20:01)
[2023-08-03] MEDS: Ondansetron PF 4 MG/2 ML Vial IVP SCH (20:01)
[2023-08-04] MEDS: Vancomycin HCl 125 MG Capsule PO SCH ×4 (02:47→20:36)
[2023-08-04] MEDS: metroNIDAZOLE 500 MG in Premix 1 BAG IVPB SCH ×3 (05:27→22:16)
[2023-08-04] MEDS: Mometasone 200 MCG HFA INHALER (RT USE) INH SCH ×2 (07:31→18:32)
[2023-08-04] MEDS: Dextrose 5%-Lactated Ringers 1,000 ML IV SCH ×2 (07:51→22:16)
[2023-08-04] MEDS: Metoclopramide HCl 10 MG (2 mL) VIAL IVP SCH ×2 (07:52→20:36)
[2023-08-04] MEDS: Ondansetron PF 4 MG/2 ML Vial IVP SCH ×2 (07:52→15:40)
[2023-08-04] MEDS ORDERED: Magnesium 2 GM/50 ML(in water) 2 GM in Premix 1 BAG IVPB SCH (08:00)
[2023-08-04 08:29] LABS: Anion Gap 13 mmol/L (10-20); BUN (Urea Nitrogen) 11 mg/dL (9.8-20.1); Calc. Creatinine Clearance 40 mL/min (70-130); Calcium 8.9 mg/dL (7.8-10.44); Carbon Dioxide 24 mmol/L (23-31); Chloride 104 mmol/L (98-107); Estimated GFR 57; Glucose 153 mg/dL (83-110); Potassium 2.9 mmol/L (3.5-5.1); Sodium 138 mmol/L (136-145)
[2023-08-04] MEDS: Amino Acids 4.25 %/Dextrose 5% 1,000 ML IV SCH ×2 (08:47→23:43)
[2023-08-04] MEDS: Potassium Chloride 20 MEQ TAB PO SCH ×2 (12:02→15:32)
[2023-08-04] MEDS: Montelukast Sodium 10 mg Tablet PO SCH (20:36)
[2023-08-04] MEDS ORDERED: Promethazine HCl 25 MG in Sodium Chloride 0.9% 50 ML IVPB PRN (22:42)
[2023-08-04] MEDS: Prochlorperazine Edisylate 10 MG in Sodium Chloride 0.9% 50 ML IVPB PRN (23:25)
[2023-08-05] MEDS: Loperamide HCl 2 MG CAP PO PRN (00:48)
[2023-08-05] MEDS: Vancomycin HCl 125 MG Capsule PO SCH ×4 (02:56→21:54)
[2023-08-05] MEDS: Ondansetron PF 4 MG/2 ML Vial IVP SCH ×3 (02:57→21:53)
[2023-08-05] MEDS: metroNIDAZOLE 500 MG in Premix 1 BAG IVPB SCH ×3 (05:19→21:54)
[2023-08-05] MEDS: Mometasone 200 MCG HFA INHALER (RT USE) INH SCH ×2 (06:48→19:20)
[2023-08-05 07:29] LABS: Anion Gap 13 mmol/L (10-20); BUN (Urea Nitrogen) 19 mg/dL (9.8-20.1); Calc. Creatinine Clearance 48 mL/min (70-130); Calcium 8.9 mg/dL (7.8-10.44); Carbon Dioxide 24 mmol/L (23-31); Chloride 101 mmol/L (98-107); Estimated GFR 72; Glucose 130 mg/dL (83-110); Potassium 2.9 mmol/L (3.5-5.1); Sodium 135 mmol/L (136-145)
[2023-08-05] MEDS ORDERED: Dextrose 50% Abboject 50 ML SYRINGE SLOW IVP PRN (09:08)
[2023-08-05] MEDS ORDERED: HumaLOG 300 UNITS/3 ML VIAL SC PRN (09:08)
[2023-08-05] MEDS ORDERED: Dextrose 5% in Water 1,000 ML IV PRN (09:08)
[2023-08-05] MEDS ORDERED: Glucagon 1 MG/ML KIT IM PRN (09:08)
[2023-08-05] MEDS: Metoclopramide HCl 10 MG (2 mL) VIAL IVP SCH ×3 (10:06→18:25)
[2023-08-05] MEDS: Potassium Chloride 20 MEQ in Premix 1 BAG IVPB SCH ×2 (10:06→12:33)
[2023-08-05] MEDS: Potassium Chloride 20 MEQ TAB PO SCH ×2 (10:06→15:12)
[2023-08-05] MEDS: Amino Acids 4.25 %/Dextrose 5% 1,000 ML IV SCH (18:49)
[2023-08-05] MEDS ORDERED: Potassium Chloride 20 MEQ in Premix 1 BAG IVPB SCH (19:30)
[2023-08-05] MEDS: Montelukast Sodium 10 mg Tablet PO SCH (21:54)
[2023-08-06] MEDS: Amino Acids 4.25 %/Dextrose 5% 1,000 ML IV SCH ×3 (01:38→23:00)
[2023-08-06] MEDS: Metoclopramide HCl 10 MG (2 mL) VIAL IVP SCH ×4 (01:38→18:06)
[2023-08-06] MEDS: Vancomycin HCl 125 MG Capsule PO SCH ×5 (01:51→20:55)
[2023-08-06] MEDS: metroNIDAZOLE 500 MG in Premix 1 BAG IVPB SCH ×2 (05:26→12:11)
[2023-08-06] MEDS: Ondansetron PF 4 MG/2 ML Vial IVP SCH ×3 (05:26→23:00)
[2023-08-06 05:31] LABS: Hematocrit 37.6 % (36.0-47.0); Hemoglobin 12.2 g/dL (12.0-16.0); Mean Corpuscular HGB CONC 32.4 g/dL (32.0-36.0); Mean Corpuscular Hemoglobin 29.7 pg (27.0-31.0); Mean Corpuscular Volume 91.5 fl (78.0-98.0); Mean Platelet Volume 11.1 fL (7.4-10.4); Platelet Count 245 10x3/uL (130-400); RBC Distribution Width 14.4 % (11.5-14.5); Red Blood Cell (RBC) Count 4.11 mill/uL (4.20-5.40); White Blood Cell (WBC) Count 9.2 10x3/uL (4.8-10.8)
[2023-08-06 05:55] LABS: BUN (Urea Nitrogen) 21 mg/dL (9.8-20.1); Calc. Creatinine Clearance 47 mL/min (70-130); Carbon Dioxide 23 mmol/L (23-31); Chloride 101 mmol/L (98-107); Estimated GFR 70; Glucose 170 mg/dL (83-110); Potassium 3.3 mmol/L (3.5-5.1); Sodium 132 mmol/L (136-145)
[2023-08-06 06:00] LABS: Anion Gap 11 mmol/L (10-20)
[2023-08-06] MEDS: Mometasone 200 MCG HFA INHALER (RT USE) INH SCH ×2 (07:13→19:32)
[2023-08-06] MEDS: NIFEdipine XL 30 MG ER.TAB PO SCH ×2 (08:19→09:09)
[2023-08-06] MEDS: Prochlorperazine Edisylate 10 MG in Sodium Chloride 0.9% 50 ML IVPB PRN ×2 (09:09→20:56)
[2023-08-06] MEDS: Loperamide HCl 2 MG CAP PO PRN (09:14)
[2023-08-06] MEDS: Potassium Chloride 20 MEQ in Premix 1 BAG IVPB SCH ×2 (09:15→11:35)
[2023-08-06] MEDS ORDERED: Phenol 177 ML BOT PO PRN (12:35)
[2023-08-06] MEDS ORDERED: Labetalol HCl 100 MG/20 ML VIAL SLOW IVP SCH (17:00)
[2023-08-06] MEDS ORDERED: Cosyntropin 250 MCG VIAL SLOW IVP SCH (17:00)
[2023-08-06] MEDS ORDERED: Calcium Carbonate 500 MG ChewTAB PO PRN (18:37)
[2023-08-06] MEDS: Montelukast Sodium 10 mg Tablet PO SCH (20:55)
[2023-08-06] MEDS ORDERED: diphenhydrAMINE 50 MG/ML VIAL IVP SCH (22:30)
[2023-08-07] MEDS: Metoclopramide HCl 10 MG (2 mL) VIAL IVP SCH ×4 (00:58→17:53)
[2023-08-07] MEDS: Vancomycin HCl 125 MG Capsule PO SCH ×4 (01:50→21:23)
[2023-08-07] MEDS: Ondansetron PF 4 MG/2 ML Vial IVP SCH ×3 (05:27→23:31)
[2023-08-07] MEDS: Mometasone 200 MCG HFA INHALER (RT USE) INH SCH ×2 (06:45→19:19)
[2023-08-07 06:53] LABS: Anion Gap 15 mmol/L (10-20); BUN (Urea Nitrogen) 28 mg/dL (9.8-20.1); Calc. Creatinine Clearance 45 mL/min (70-130); Calcium 9.1 mg/dL (7.8-10.44); Carbon Dioxide 22 mmol/L (23-31); Chloride 97 mmol/L (98-107); Estimated GFR 66; Glucose 193 mg/dL (83-110); Potassium 3.6 mmol/L (3.5-5.1); Sodium 130 mmol/L (136-145)
[2023-08-07] MEDS: NIFEdipine XL 30 MG ER.TAB PO SCH (08:24)
[2023-08-07] MEDS ORDERED: PROPOFOL 20 ML ONE (08:54)
[2023-08-07] MEDS ORDERED: Lidocaine 1% PF 5 ML VIAL ONE ×2 (08:54→09:19)
[2023-08-07] MEDS ORDERED: Dexamethasone 4 mg/ml Vial SLOW IVP SCH (09:00)
[2023-08-07] MEDS ORDERED: PROPOFOL 200 MG/20 ML VIAL ONE (09:19)
[2023-08-07] MEDS ORDERED: Promethazine HCl 25 MG/ML VIAL IM PRN (09:38)
[2023-08-07] MEDS ORDERED: Ondansetron HCl/PF 4 MG/2 ML Vial IVP PRN (09:38)
[2023-08-07] MEDS ORDERED: Ondansetron PF 4 MG/2 ML Vial ONE (10:00)
[2023-08-07] MEDS: Pantoprazole 40 MG VIAL IVP SCH ×2 (10:23→23:31)
[2023-08-07] MEDS: Amino Acids 4.25 %/Dextrose 5% 1,000 ML IV SCH (15:12)
[2023-08-07] MEDS: Montelukast Sodium 10 mg Tablet PO SCH ×2 (21:23→21:28)
[2023-08-07] MEDS: Sucralfate 1 GM/10 ML UDCUP PO PRN (21:25)
[2023-08-07] MEDS ORDERED: Silver Sulfadiazine 1% Cream 20 GM TUBE TOP SCH (23:30)
[2023-08-08] MEDS: Metoclopramide HCl 10 MG (2 mL) VIAL IVP SCH ×5 (02:06→17:54)
[2023-08-08] MEDS: Vancomycin HCl 125 MG Capsule PO SCH ×6 (02:06→21:14)
[2023-08-08] MEDS: Ondansetron PF 4 MG/2 ML Vial IVP SCH ×3 (05:30→21:14)
[2023-08-08 06:36] LABS: #Monocytes 1.3 thou/uL (0.11-0.59); #Neutrophils 8.2 thou/uL (1.40-6.50); %Basophils 0.1 % (0.0-1.0); %Lymphocytes 9.9 % (21.0-51.0); %Monocytes 12.2 % (0.0-10.0); %Neutrophils 77.4 % (42.0-75.0); Hematocrit 33.9 % (36.0-47.0); Hemoglobin 11.3 g/dL (12.0-16.0); Mean Corpuscular HGB CONC 33.3 g/dL (32.0-36.0); Mean Corpuscular Hemoglobin 29.7 pg (27.0-31.0); Mean Platelet Volume 10.9 fL (7.4-10.4); Platelet Count 227 10x3/uL (130-400); RBC Distribution Width 14.2 % (11.5-14.5); Red Blood Cell (RBC) Count 3.81 mill/uL (4.20-5.40); White Blood Cell (WBC) Count 10.6 10x3/uL (4.8-10.8)
[2023-08-08] MEDS: Mometasone 200 MCG HFA INHALER (RT USE) INH SCH ×2 (06:37→18:58)
[2023-08-08 07:04] LABS: Anion Gap 10 mmol/L (10-20); BUN (Urea Nitrogen) 29 mg/dL (9.8-20.1); Calc. Creatinine Clearance 47 mL/min (70-130); Calcium 8.8 mg/dL (7.8-10.44); Carbon Dioxide 26 mmol/L (23-31); Chloride 96 mmol/L (98-107); Estimated GFR 69; Glucose 187 mg/dL (83-110); Potassium 3.2 mmol/L (3.5-5.1); Sodium 129 mmol/L (136-145)
[2023-08-08] MEDS: Amino Acids 4.25 %/Dextrose 5% 1,000 ML IV SCH ×2 (08:05→08:16)
[2023-08-08] MEDS: Pantoprazole 40 MG VIAL IVP SCH ×2 (08:08→21:15)
[2023-08-08 08:17] LABS: Magnesium 0.6 mg/dL (1.6-2.6); Phosphorus 1.3 mg/dL (2.3-4.7)
[2023-08-08] MEDS: NIFEdipine XL 30 MG ER.TAB PO SCH (08:22)
[2023-08-08] MEDS ORDERED: Potassium Phosphate 30 MMOL in Sodium Chloride 0.9% 500 ML IVPB SCH (08:45)
[2023-08-08] MEDS ORDERED: Magnesium 2 GM/50 ML(in water) 4 GM in Premix 1 BAG IVPB SCH ×2 (08:45→15:00)
[2023-08-08] MEDS: Silver Sulfadiazine 50 GM TUBE TOP SCH ×3 (11:26→21:15)
[2023-08-08] MEDS: Sucralfate 1 GM/10 ML UDCUP PO PRN (12:02)
[2023-08-08] MEDS ORDERED: Magnesium Sulfate In Water 4 GM in Premix 1 BAG IVPB SCH (15:00)
[2023-08-08] MEDS: Montelukast Sodium 10 mg Tablet PO SCH (21:15)
[2023-08-09] MEDS: Metoclopramide HCl 10 MG (2 mL) VIAL IVP SCH ×4 (00:30→17:44)
[2023-08-09] MEDS: Vancomycin HCl 125 MG Capsule PO SCH ×4 (02:11→20:30)
[2023-08-09] MEDS: Sucralfate 1 GM/10 ML UDCUP PO PRN (02:11)
[2023-08-09] MEDS: Ondansetron PF 4 MG/2 ML Vial IVP SCH ×3 (05:27→21:35)
[2023-08-09] MEDS: Amino Acids 4.25 %/Dextrose 5% 1,000 ML IV SCH ×2 (06:37→18:31)
[2023-08-09 06:38] LABS: Hematocrit 32.7 % (36.0-47.0); Hemoglobin 10.9 g/dL (12.0-16.0); Mean Corpuscular HGB CONC 33.3 g/dL (32.0-36.0); Mean Corpuscular Hemoglobin 29.3 pg (27.0-31.0); Mean Corpuscular Volume 87.9 fl (78.0-98.0); Mean Platelet Volume 10.5 fL (7.4-10.4); Platelet Count 213 10x3/uL (130-400); RBC Distribution Width 14.1 % (11.5-14.5); Red Blood Cell (RBC) Count 3.72 mill/uL (4.20-5.40)
[2023-08-09] MEDS: Mometasone 200 MCG HFA INHALER (RT USE) INH SCH ×2 (06:42→20:06)
[2023-08-09 07:05] LABS: Anion Gap 11 mmol/L (10-20); BUN (Urea Nitrogen) 24 mg/dL (9.8-20.1); Calc. Creatinine Clearance 47 mL/min (70-130); Calcium 8.3 mg/dL (7.8-10.44); Carbon Dioxide 23 mmol/L (23-31); Chloride 98 mmol/L (98-107); Estimated GFR 70; Glucose 152 mg/dL (83-110); Magnesium 1.6 mg/dL (1.6-2.6); Phosphorus 2.2 mg/dL (2.3-4.7); Sodium 129 mmol/L (136-145)
[2023-08-09] MEDS ORDERED: Potassium Phosphate 30 MMOL in Sodium Chloride 0.9% 500 ML IVPB SCH (08:30)
[2023-08-09] MEDS ORDERED: Magnesium 2 GM/50 ML(in water) 2 GM in Premix 1 BAG IVPB SCH (08:30)
[2023-08-09] MEDS: Pantoprazole 40 MG VIAL IVP SCH ×2 (08:46→20:30)
[2023-08-09] MEDS: NIFEdipine XL 30 MG ER.TAB PO SCH (08:46)
[2023-08-09] MEDS: Potassium Chloride 20 MEQ in Premix 1 BAG IVPB SCH ×2 (09:49→11:29)
[2023-08-09] MEDS: Silver Sulfadiazine 50 GM TUBE TOP SCH ×2 (11:29→20:42)
[2023-08-09] MEDS: Montelukast Sodium 10 mg Tablet PO SCH (20:30)
[2023-08-10] MEDS: Metoclopramide HCl 10 MG (2 mL) VIAL IVP SCH ×4 (01:15→17:25)
[2023-08-10] MEDS: Vancomycin HCl 125 MG Capsule PO SCH ×5 (01:15→20:24)
[2023-08-10] MEDS: Ondansetron PF 4 MG/2 ML Vial IVP SCH ×3 (05:33→22:37)
[2023-08-10 06:39] LABS: Hematocrit 32.4 % (36.0-47.0); Hemoglobin 10.9 g/dL (12.0-16.0); Mean Corpuscular HGB CONC 33.6 g/dL (32.0-36.0); Mean Corpuscular Hemoglobin 29.5 pg (27.0-31.0); Mean Corpuscular Volume 87.6 fl (78.0-98.0); Mean Platelet Volume 11.1 fL (7.4-10.4); Platelet Count 228 10x3/uL (130-400); RBC Distribution Width 13.9 % (11.5-14.5); White Blood Cell (WBC) Count 6.5 10x3/uL (4.8-10.8)
[2023-08-10 07:12] LABS: Anion Gap 11 mmol/L (10-20); BUN (Urea Nitrogen) 18 mg/dL (9.8-20.1); Calc. Creatinine Clearance 54 mL/min (70-130); Calcium 8.2 mg/dL (7.8-10.44); Carbon Dioxide 24 mmol/L (23-31); Chloride 94 mmol/L (98-107); Estimated GFR 83; Glucose 177 mg/dL (83-110); Magnesium 1.2 mg/dL (1.6-2.6); Phosphorus 2.1 mg/dL (2.3-4.7); Potassium 3.2 mmol/L (3.5-5.1); Sodium 126 mmol/L (136-145)
[2023-08-10] MEDS: Mometasone 200 MCG HFA INHALER (RT USE) INH SCH ×2 (08:14→19:11)
[2023-08-10] MEDS ORDERED: Magnesium 2 GM/50 ML(in water) 2 GM in Premix 1 BAG IVPB SCH (08:30)
[2023-08-10] MEDS ORDERED: Potassium Phosphate 15 MMOL in Sodium Chloride 0.9% 250 ML 250 ML IVPB SCH (09:00)
[2023-08-10] MEDS: NIFEdipine XL 30 MG ER.TAB PO SCH (09:40)
[2023-08-10] MEDS: Pantoprazole 40 MG VIAL IVP SCH ×2 (09:44→20:24)
[2023-08-10] MEDS: Silver Sulfadiazine 50 GM TUBE TOP SCH ×3 (09:47→20:43)
[2023-08-10] MEDS: Potassium Chloride 20 MEQ in Premix 1 BAG IVPB SCH ×2 (09:55→13:27)
[2023-08-10] MEDS ORDERED: Escitalopram Oxalate 10 mg Tablet PO SCH (10:00)
[2023-08-10] MEDS ORDERED: Rivaroxaban 10 MG TAB PO SCH (10:00)
[2023-08-10] MEDS: Amino Acids 4.25 %/Dextrose 5% 1,000 ML IV SCH ×2 (14:36→20:24)
[2023-08-10] MEDS: Montelukast Sodium 10 mg Tablet PO SCH (20:23)
[2023-08-11] MEDS: Metoclopramide HCl 10 MG (2 mL) VIAL IVP SCH ×4 (00:49→18:33)
[2023-08-11] MEDS: Vancomycin HCl 125 MG Capsule PO SCH ×4 (03:08→20:29)
[2023-08-11] MEDS: Ondansetron PF 4 MG/2 ML Vial IVP SCH ×3 (05:04→23:20)
[2023-08-11 06:37] LABS: Anion Gap 11 mmol/L (10-20); BUN (Urea Nitrogen) 16 mg/dL (9.8-20.1); Calc. Creatinine Clearance 56 mL/min (70-130); Calcium 8.6 mg/dL (7.8-10.44); Carbon Dioxide 24 mmol/L (23-31); Chloride 96 mmol/L (98-107); Estimated GFR 85; Glucose 163 mg/dL (83-110); Magnesium 1.4 mg/dL (1.6-2.6); Phosphorus 1.9 mg/dL (2.3-4.7); Potassium 3.4 mmol/L (3.5-5.1); Sodium 128 mmol/L (136-145)
[2023-08-11] MEDS: Mometasone 200 MCG HFA INHALER (RT USE) INH SCH ×2 (07:09→19:28)
[2023-08-11] MEDS: Escitalopram Oxalate 10 mg Tablet PO SCH (07:52)
[2023-08-11] MEDS: Rivaroxaban 10 MG TAB PO SCH (07:52)
[2023-08-11] MEDS: NIFEdipine XL 30 MG ER.TAB PO SCH (07:52)
[2023-08-11] MEDS: Pantoprazole 40 MG VIAL IVP SCH ×2 (07:52→20:29)
[2023-08-11] MEDS ORDERED: Potassium Phosphate 22 MMOL in Sodium Chloride 0.9% 250 ML 250 ML IVPB SCH (08:45)
[2023-08-11] MEDS ORDERED: Magnesium Sulfate In Water 4 GM in Premix 1 BAG IVPB SCH (09:00)
[2023-08-11] MEDS: Amino Acids 4.25 %/Dextrose 5% 1,000 ML IV SCH ×2 (10:02→23:20)
[2023-08-11] MEDS: Silver Sulfadiazine 50 GM TUBE TOP SCH ×2 (10:14→20:42)
[2023-08-11] MEDS: Potassium Chloride 20 MEQ in Premix 1 BAG IVPB SCH ×2 (11:32→14:46)
[2023-08-11] MEDS: Montelukast Sodium 10 mg Tablet PO SCH (20:29)
[2023-08-12] MEDS: Metoclopramide HCl 10 MG (2 mL) VIAL IVP SCH ×5 (01:09→23:18)
[2023-08-12] MEDS: Vancomycin HCl 125 MG Capsule PO SCH ×4 (03:17→20:13)
[2023-08-12] MEDS: Ondansetron PF 4 MG/2 ML Vial IVP SCH ×3 (06:00→20:13)
[2023-08-12 06:09] LABS: Hematocrit 32.6 % (36.0-47.0); Hemoglobin 10.9 g/dL (12.0-16.0); Mean Corpuscular HGB CONC 33.4 g/dL (32.0-36.0); Mean Corpuscular Hemoglobin 29.6 pg (27.0-31.0); Mean Corpuscular Volume 88.6 fl (78.0-98.0); Mean Platelet Volume 11.2 fL (7.4-10.4); Platelet Count 234 10x3/uL (130-400); RBC Distribution Width 13.8 % (11.5-14.5); Red Blood Cell (RBC) Count 3.68 mill/uL (4.20-5.40); White Blood Cell (WBC) Count 6.8 10x3/uL (4.8-10.8)
[2023-08-12 06:36] LABS: Anion Gap 9 mmol/L (10-20); BUN (Urea Nitrogen) 17 mg/dL (9.8-20.1); Calc. Creatinine Clearance 57 mL/min (70-130); Calcium 8.6 mg/dL (7.8-10.44); Carbon Dioxide 24 mmol/L (23-31); Chloride 94 mmol/L (98-107); Estimated GFR 87; Glucose 165 mg/dL (83-110); Magnesium 1.6 mg/dL (1.6-2.6); Phosphorus 2.1 mg/dL (2.3-4.7); Potassium 3.5 mmol/L (3.5-5.1); Sodium 123 mmol/L (136-145)
[2023-08-12] MEDS: Mometasone 200 MCG HFA INHALER (RT USE) INH SCH ×2 (09:02→18:48)
[2023-08-12] MEDS: NIFEdipine XL 30 MG ER.TAB PO SCH (09:52)
[2023-08-12] MEDS: Silver Sulfadiazine 50 GM TUBE TOP SCH ×2 (09:52→20:15)
[2023-08-12] MEDS: Rivaroxaban 10 MG TAB PO SCH (09:52)
[2023-08-12] MEDS: Escitalopram Oxalate 10 mg Tablet PO SCH (09:52)
[2023-08-12] MEDS: Pantoprazole 40 MG VIAL IVP SCH ×2 (09:52→20:15)
[2023-08-12] MEDS: Amino Acids 4.25 %/Dextrose 5% 1,000 ML IV SCH (12:03)
[2023-08-12] MEDS ORDERED: Megestrol Acetate 400 MG/10 ML UDCUP PO SCH (12:45)
[2023-08-12] MEDS ORDERED: Sodium Chloride 1 GM TAB PO SCH (19:15)
[2023-08-12] MEDS: Montelukast Sodium 10 mg Tablet PO SCH (20:13)
[2023-08-12] MEDS: Megestrol Acetate 400 MG/10 ML UDCUP PO SCH (20:15)
[2023-08-12] MEDS: Sodium Chloride 0.9% 1,000 ML IV SCH (20:16)
[2023-08-12] MEDS ORDERED: MOLNUPIRAVIR (EUA) 200 MG CAPSULE PO SCH (21:00)
[2023-08-13] MEDS: Vancomycin HCl 125 MG Capsule PO SCH ×3 (03:26→15:16)
[2023-08-13] MEDS: Ondansetron PF 4 MG/2 ML Vial IVP SCH ×3 (05:30→19:50)
[2023-08-13] MEDS: Metoclopramide HCl 10 MG (2 mL) VIAL IVP SCH ×3 (05:30→17:23)
[2023-08-13] MEDS: Sodium Chloride 0.9% 1,000 ML IV SCH ×2 (05:32→19:49)
[2023-08-13 06:14] LABS: #Eosinphils 0.1 thou/uL (0.0-0.7); #Monocytes 0.9 thou/uL (0.11-0.59); #Neutrophils 4.6 thou/uL (1.40-6.50); %Basophils 0.6 % (0.0-1.0); %Lymphocytes 18.6 % (21.0-51.0); %Monocytes 13.3 % (0.0-10.0); %Neutrophils 64.9 % (42.0-75.0); Hematocrit 33.7 % (36.0-47.0); Hemoglobin 11.2 g/dL (12.0-16.0); Mean Corpuscular HGB CONC 33.2 g/dL (32.0-36.0); Mean Corpuscular Hemoglobin 28.8 pg (27.0-31.0); Mean Corpuscular Volume 86.6 fl (78.0-98.0); Mean Platelet Volume 10.9 fL (7.4-10.4); Platelet Count 249 10x3/uL (130-400); RBC Distribution Width 13.7 % (11.5-14.5); Red Blood Cell (RBC) Count 3.89 mill/uL (4.20-5.40); White Blood Cell (WBC) Count 7.1 10x3/uL (4.8-10.8)
[2023-08-13 06:45] LABS: Anion Gap 12 mmol/L (10-20); BUN (Urea Nitrogen) 18 mg/dL (9.8-20.1); Calc. Creatinine Clearance 53 mL/min (70-130); Calcium 9.1 mg/dL (7.8-10.44); Carbon Dioxide 22 mmol/L (23-31); Chloride 96 mmol/L (98-107); Estimated GFR 80; Glucose 130 mg/dL (83-110); Magnesium 1.2 mg/dL (1.6-2.6); Potassium 3.4 mmol/L (3.5-5.1); Sodium 127 mmol/L (136-145)
[2023-08-13] MEDS ORDERED: Electrolyte Replacement Protocol 1 EACH FS SCH (08:00)
[2023-08-13] MEDS ORDERED: Electrolyte Replacement Protocol FS PRN (08:15)
[2023-08-13] MEDS: Mometasone 200 MCG HFA INHALER (RT USE) INH SCH ×2 (08:38→19:08)
[2023-08-13] MEDS ORDERED: Magnesium Sulfate In Water 4 GM in Premix 1 BAG IVPB SCH (09:00)
[2023-08-13] MEDS: Megestrol Acetate 400 MG/10 ML UDCUP PO SCH ×3 (09:01→19:52)
[2023-08-13] MEDS: Pantoprazole 40 MG VIAL IVP SCH ×2 (09:01→19:52)
[2023-08-13] MEDS: Rivaroxaban 10 MG TAB PO SCH (09:01)
[2023-08-13] MEDS: Silver Sulfadiazine 50 GM TUBE TOP SCH ×2 (09:01→19:52)
[2023-08-13] MEDS: NIFEdipine XL 30 MG ER.TAB PO SCH (09:01)
[2023-08-13] MEDS: Escitalopram Oxalate 10 mg Tablet PO SCH (09:01)
[2023-08-13] MEDS: Potassium Chloride 20 MEQ in Premix 1 BAG IVPB SCH ×2 (09:01→12:56)
[2023-08-13 18:05] LABS: Potassium 3.6 mmol/L (3.5-5.1)
[2023-08-13] MEDS: Montelukast Sodium 10 mg Tablet PO SCH (19:50)
[2023-08-13] MEDS: Mirtazapine 15 MG TAB PO SCH (19:50)
[2023-08-14] MEDS: Metoclopramide HCl 10 MG (2 mL) VIAL IVP SCH ×4 (00:25→17:43)
[2023-08-14] MEDS: Ondansetron PF 4 MG/2 ML Vial IVP SCH ×3 (05:40→21:57)
[2023-08-14] MEDS: Sodium Chloride 0.9% 1,000 ML IV SCH (05:40)
[2023-08-14 07:09] LABS: #Basophils 0.1 thou/uL (0.0-0.2); #Eosinphils 0.2 thou/uL (0.0-0.7); #Monocytes 0.9 thou/uL (0.11-0.59); %Basophils 0.7 % (0.0-1.0); %Eosinophils 2.1 % (0.0-10.0); %Lymphocytes 13.9 % (21.0-51.0); %Monocytes 12.8 % (0.0-10.0); %Neutrophils 69.8 % (42.0-75.0); Hematocrit 34.1 % (36.0-47.0); Hemoglobin 11.2 g/dL (12.0-16.0); Mean Corpuscular HGB CONC 32.8 g/dL (32.0-36.0); Mean Corpuscular Hemoglobin 29.1 pg (27.0-31.0); Mean Corpuscular Volume 88.6 fl (78.0-98.0); Mean Platelet Volume 10.4 fL (7.4-10.4); Platelet Count 244 10x3/uL (130-400); RBC Distribution Width 13.9 % (11.5-14.5); Red Blood Cell (RBC) Count 3.85 mill/uL (4.20-5.40); White Blood Cell (WBC) Count 7.2 10x3/uL (4.8-10.8)
[2023-08-14 07:38] LABS: Anion Gap 10 mmol/L (10-20); BUN (Urea Nitrogen) 11 mg/dL (9.8-20.1); Calc. Creatinine Clearance 51 mL/min (70-130); Carbon Dioxide 23 mmol/L (23-31); Chloride 100 mmol/L (98-107); Estimated GFR 77; Glucose 119 mg/dL (83-110); Magnesium 1.5 mg/dL (1.6-2.6); Potassium 3.2 mmol/L (3.5-5.1); Sodium 130 mmol/L (136-145)
[2023-08-14] MEDS: Mometasone 200 MCG HFA INHALER (RT USE) INH SCH ×2 (08:11→19:24)
[2023-08-14] MEDS: Escitalopram Oxalate 10 mg Tablet PO SCH (08:39)
[2023-08-14] MEDS: NIFEdipine XL 30 MG ER.TAB PO SCH (08:39)
[2023-08-14] MEDS: Megestrol Acetate 400 MG/10 ML UDCUP PO SCH ×2 (08:39→20:03)
[2023-08-14] MEDS: Silver Sulfadiazine 50 GM TUBE TOP SCH ×2 (08:39→20:10)
[2023-08-14] MEDS: Rivaroxaban 10 MG TAB PO SCH (08:39)
[2023-08-14] MEDS: Pantoprazole 40 MG VIAL IVP SCH ×2 (08:39→20:03)
[2023-08-14] MEDS ORDERED: Magnesium 2 GM/50 ML(in water) 2 GM in Premix 1 BAG IVPB SCH (08:45)
[2023-08-14] MEDS ORDERED: Potassium Chloride 20 MEQ TAB PO SCH (08:45)
[2023-08-14] MEDS: Potassium Chloride 20 MEQ TAB PO SCH (17:43)
[2023-08-14] MEDS: Magnesium Oxide 400 MG TAB PO SCH ×2 (20:03→20:05)
[2023-08-14] MEDS: Montelukast Sodium 10 mg Tablet PO SCH (20:03)
[2023-08-14] MEDS: Mirtazapine 15 MG TAB PO SCH (20:03)
[2023-08-15] MEDS: Metoclopramide HCl 10 MG (2 mL) VIAL IVP SCH ×4 (01:00→18:13)
[2023-08-15] MEDS: Ondansetron PF 4 MG/2 ML Vial IVP SCH ×3 (06:20→20:47)
[2023-08-15] MEDS: Mometasone 200 MCG HFA INHALER (RT USE) INH SCH ×2 (07:25→18:51)
[2023-08-15] MEDS ORDERED: Potassium Chloride 20 MEQ TAB PO SCH ×2 (08:00→13:30)
[2023-08-15 08:43] LABS: #Basophils 0.1 thou/uL (0.0-0.2); #Eosinphils 0.1 thou/uL (0.0-0.7); #Neutrophils 4.3 thou/uL (1.40-6.50); %Basophils 0.7 % (0.0-1.0); %Eosinophils 1.9 % (0.0-10.0); %Lymphocytes 18.2 % (21.0-51.0); %Monocytes 14.8 % (0.0-10.0); %Neutrophils 63.8 % (42.0-75.0); Hemoglobin 11.1 g/dL (12.0-16.0); Mean Corpuscular HGB CONC 32.6 g/dL (32.0-36.0); Mean Corpuscular Hemoglobin 28.8 pg (27.0-31.0); Mean Corpuscular Volume 88.3 fl (78.0-98.0); Mean Platelet Volume 10.9 fL (7.4-10.4); Platelet Count 251 10x3/uL (130-400); RBC Distribution Width 14.1 % (11.5-14.5); Red Blood Cell (RBC) Count 3.85 mill/uL (4.20-5.40); White Blood Cell (WBC) Count 6.8 10x3/uL (4.8-10.8)
[2023-08-15 09:10] LABS: Anion Gap 12 mmol/L (10-20); BUN (Urea Nitrogen) 7 mg/dL (9.8-20.1); Calc. Creatinine Clearance 53 mL/min (70-130); Calcium 9.1 mg/dL (7.8-10.44); Carbon Dioxide 27 mmol/L (23-31); Chloride 98 mmol/L (98-107); Estimated GFR 81; Glucose 103 mg/dL (83-110); Magnesium 1.4 mg/dL (1.6-2.6); Potassium 2.8 mmol/L (3.5-5.1); Sodium 134 mmol/L (136-145)
[2023-08-15] MEDS: Sodium Chloride 0.9% 1,000 ML IV SCH ×3 (09:17→13:24)
[2023-08-15] MEDS: Magnesium Oxide 400 MG TAB PO SCH ×2 (09:19→20:48)
[2023-08-15] MEDS: Rivaroxaban 10 MG TAB PO SCH (09:20)
[2023-08-15] MEDS: NIFEdipine XL 30 MG ER.TAB PO SCH (09:20)
[2023-08-15] MEDS: Escitalopram Oxalate 10 mg Tablet PO SCH (09:20)
[2023-08-15] MEDS: Megestrol Acetate 400 MG/10 ML UDCUP PO SCH ×2 (09:20→20:49)
[2023-08-15] MEDS: Potassium Chloride 20 MEQ TAB PO SCH ×3 (09:20→13:48)
[2023-08-15] MEDS: Pantoprazole 40 MG VIAL IVP SCH ×2 (09:20→20:49)
[2023-08-15] MEDS: Silver Sulfadiazine 50 GM TUBE TOP SCH ×2 (09:21→20:50)
[2023-08-15] MEDS ORDERED: Magnesium Sulfate In Water 4 GM in Premix 1 BAG IVPB SCH ×2 (13:30)
[2023-08-15] MEDS: NS 0.9% w/ 20 MEQ KCL 1,000 ML/1,000 ML BAG IV SCH (17:02)
[2023-08-15] MEDS: Montelukast Sodium 10 mg Tablet PO SCH (20:48)
[2023-08-15] MEDS: Mirtazapine 15 MG TAB PO SCH (20:48)
[2023-08-15] MEDS ORDERED: Megestrol Acetate 800 MG/20 ML UDCUP PO SCH (21:00)
[2023-08-16] MEDS: Metoclopramide HCl 10 MG (2 mL) VIAL IVP SCH ×4 (00:41→17:07)
[2023-08-16] MEDS: NS 0.9% w/ 20 MEQ KCL 1,000 ML/1,000 ML BAG IV SCH (02:54)
[2023-08-16] MEDS: Ondansetron PF 4 MG/2 ML Vial IVP SCH ×3 (05:01→22:28)
[2023-08-16] MEDS: Mometasone 200 MCG HFA INHALER (RT USE) INH SCH ×2 (08:11→19:09)
[2023-08-16 08:50] LABS: #Basophils 0.1 thou/uL (0.0-0.2); #Eosinphils 0.1 thou/uL (0.0-0.7); #Neutrophils 6.3 thou/uL (1.40-6.50); %Basophils 0.6 % (0.0-1.0); %Eosinophils 1.6 % (0.0-10.0); %Lymphocytes 15.8 % (21.0-51.0); %Monocytes 11.4 % (0.0-10.0); Hematocrit 35.1 % (36.0-47.0); Hemoglobin 11.5 g/dL (12.0-16.0); Mean Corpuscular HGB CONC 32.8 g/dL (32.0-36.0); Mean Corpuscular Volume 88.4 fl (78.0-98.0); Mean Platelet Volume 10.9 fL (7.4-10.4); Platelet Count 264 10x3/uL (130-400); RBC Distribution Width 14.1 % (11.5-14.5); Red Blood Cell (RBC) Count 3.97 mill/uL (4.20-5.40); White Blood Cell (WBC) Count 8.9 10x3/uL (4.8-10.8)
[2023-08-16] MEDS: Escitalopram Oxalate 10 mg Tablet PO SCH (09:08)
[2023-08-16] MEDS: Magnesium Oxide 400 MG TAB PO SCH ×2 (09:08→20:28)
[2023-08-16] MEDS: Rivaroxaban 10 MG TAB PO SCH (09:09)
[2023-08-16] MEDS: Megestrol Acetate 800 MG/20 ML UDCUP PO SCH ×2 (09:09→20:29)
[2023-08-16] MEDS: NIFEdipine XL 30 MG ER.TAB PO SCH (09:09)
[2023-08-16] MEDS: Pantoprazole 40 MG VIAL IVP SCH ×2 (09:09→20:29)
[2023-08-16] MEDS: Silver Sulfadiazine 50 GM TUBE TOP SCH ×2 (09:09→20:29)
[2023-08-16 09:12] LABS: Anion Gap 16 mmol/L (10-20); BUN (Urea Nitrogen) 7 mg/dL (9.8-20.1); Calc. Creatinine Clearance 50 mL/min (70-130); Calcium 9.5 mg/dL (7.8-10.44); Carbon Dioxide 23 mmol/L (23-31); Cardiac Risk 3.1 (Less than 4.5); Chloride 96 mmol/L (98-107); Cholesterol 179 mg/dl (< 200 Desired); Estimated GFR 75; Glucose 109 mg/dL (83-110); HDL Cholesterol 57 mg/dL (>60 Neg Risk); LDL Cholesterol, Calculated 99 mg/dL; Magnesium 1.8 mg/dL (1.6-2.6); Potassium 3.1 mmol/L (3.5-5.1); Sodium 132 mmol/L (136-145); Triglycerides 116 mg/dL (Less than 150)
[2023-08-16 09:32] LABS: ALT (SGPT) 10 U/L (8-55); AST (SGOT) 17 U/L (5-34); Albumin 3.2 g/dL (3.4-4.8); Alkaline Phosphatase 76 U/L (40-110); Bilirubin, Direct 0.6 mg/dL (0.1-0.3); Bilirubin, Total 1.3 mg/dL (0.2-1.2); Protein, Total 6.5 g/dL (5.8-8.1)
[2023-08-16] MEDS ORDERED: Magnesium 2 GM/50 ML(in water) 2 GM in Premix 1 BAG IVPB SCH (11:00)
[2023-08-16] MEDS ORDERED: Potassium Chloride 20 MEQ TAB PO SCH (11:00)
[2023-08-16] MEDS: NS 0.9% w/ 40 MEQ KCL 1,000 ML IV SCH ×2 (13:42→23:30)
[2023-08-16] MEDS: Mirtazapine 15 MG TAB PO SCH (20:29)
[2023-08-16] MEDS: Montelukast Sodium 10 mg Tablet PO SCH (20:29)
[2023-08-17] MEDS: NS 0.9% w/ 40 MEQ KCL 1,000 ML IV SCH (00:42)
[2023-08-17] MEDS: Metoclopramide HCl 10 MG (2 mL) VIAL IVP SCH ×4 (00:42→18:17)
[2023-08-17] MEDS: Ondansetron PF 4 MG/2 ML Vial IVP SCH ×3 (05:43→21:17)
[2023-08-17] MEDS: Acetaminophen 325 MG TAB PO PRN ×2 (06:36→21:14)
[2023-08-17] MEDS: Mometasone 200 MCG HFA INHALER (RT USE) INH SCH ×2 (07:28→19:32)
[2023-08-17 07:34] LABS: #Eosinphils 0.2 thou/uL (0.0-0.7); #Monocytes 1.1 thou/uL (0.11-0.59); #Neutrophils 5.2 thou/uL (1.40-6.50); %Basophils 0.5 % (0.0-1.0); %Eosinophils 2.2 % (0.0-10.0); %Lymphocytes 16.3 % (21.0-51.0); %Monocytes 13.8 % (0.0-10.0); %Neutrophils 66.7 % (42.0-75.0); Hematocrit 31.5 % (36.0-47.0); Hemoglobin 10.4 g/dL (12.0-16.0); Mean Corpuscular Hemoglobin 29.1 pg (27.0-31.0); Mean Corpuscular Volume 88.2 fl (78.0-98.0); Mean Platelet Volume 10.5 fL (7.4-10.4); Platelet Count 266 10x3/uL (130-400); RBC Distribution Width 14.2 % (11.5-14.5); Red Blood Cell (RBC) Count 3.57 mill/uL (4.20-5.40); White Blood Cell (WBC) Count 7.8 10x3/uL (4.8-10.8)
[2023-08-17 08:02] LABS: Phosphorus 2.6 mg/dL (2.3-4.7)
[2023-08-17 08:09] LABS: Anion Gap 12 mmol/L (10-20); BUN (Urea Nitrogen) 8 mg/dL (9.8-20.1); Calc. Creatinine Clearance 49 mL/min (70-130); Carbon Dioxide 25 mmol/L (23-31); Chloride 100 mmol/L (98-107); Estimated GFR 73; Glucose 103 mg/dL (83-110); Magnesium 1.5 mg/dL (1.6-2.6); Potassium 3.2 mmol/L (3.5-5.1); Sodium 134 mmol/L (136-145)
[2023-08-17] MEDS: Megestrol Acetate 800 MG/20 ML UDCUP PO SCH ×2 (09:07→21:16)
[2023-08-17] MEDS: Magnesium Oxide 400 MG TAB PO SCH ×2 (09:07→21:12)
[2023-08-17] MEDS: Silver Sulfadiazine 50 GM TUBE TOP SCH ×2 (09:07→21:16)
[2023-08-17] MEDS: Pantoprazole 40 MG VIAL IVP SCH ×2 (10:13→21:16)
[2023-08-17] MEDS: Escitalopram Oxalate 10 mg Tablet PO SCH (10:13)
[2023-08-17] MEDS: NIFEdipine XL 30 MG ER.TAB PO SCH (10:13)
[2023-08-17] MEDS: Rivaroxaban 10 MG TAB PO SCH (10:14)
[2023-08-17] MEDS ORDERED: Magnesium 2 GM/50 ML(in water) 2 GM in Premix 1 BAG IVPB SCH (14:00)
[2023-08-17] MEDS: Potassium Chloride 20 MEQ in Premix 1 BAG IVPB SCH ×2 (15:11→17:45)
[2023-08-17] MEDS: Montelukast Sodium 10 mg Tablet PO SCH (21:12)
[2023-08-17] MEDS: Mirtazapine 15 MG TAB PO SCH (21:12)
[2023-08-17 22:46] LABS: Potassium 3.7 mmol/L (3.5-5.1)
[2023-08-18] MEDS: Metoclopramide HCl 10 MG (2 mL) VIAL IVP SCH ×4 (01:31→20:53)
[2023-08-18] MEDS: Ondansetron PF 4 MG/2 ML Vial IVP SCH ×3 (06:27→20:53)
[2023-08-18] MEDS: NS 0.9% w/ 40 MEQ KCL 1,000 ML IV SCH ×3 (06:27→21:45)
[2023-08-18] MEDS: Mometasone 200 MCG HFA INHALER (RT USE) INH SCH ×2 (07:45→19:31)
[2023-08-18] MEDS: Rivaroxaban 10 MG TAB PO SCH (08:03)
[2023-08-18] MEDS: Escitalopram Oxalate 10 mg Tablet PO SCH (08:03)
[2023-08-18] MEDS: Megestrol Acetate 800 MG/20 ML UDCUP PO SCH ×2 (08:03→20:54)
[2023-08-18] MEDS: Pantoprazole 40 MG VIAL IVP SCH ×2 (08:03→20:54)
[2023-08-18] MEDS: NIFEdipine XL 30 MG ER.TAB PO SCH (08:03)
[2023-08-18] MEDS: Magnesium Oxide 400 MG TAB PO SCH ×2 (08:06→20:52)
[2023-08-18 08:44] LABS: #Eosinphils 0.2 thou/uL (0.0-0.7); #Monocytes 0.8 thou/uL (0.11-0.59); #Neutrophils 4.7 thou/uL (1.40-6.50); %Basophils 0.6 % (0.0-1.0); %Eosinophils 3.2 % (0.0-10.0); %Lymphocytes 16.1 % (21.0-51.0); %Monocytes 11.6 % (0.0-10.0); %Neutrophils 67.9 % (42.0-75.0); Hematocrit 32.5 % (36.0-47.0); Hemoglobin 10.2 g/dL (12.0-16.0); Mean Corpuscular HGB CONC 31.4 g/dL (32.0-36.0); Mean Corpuscular Hemoglobin 29.1 pg (27.0-31.0); Mean Corpuscular Volume 92.6 fl (78.0-98.0); Mean Platelet Volume 10.2 fL (7.4-10.4); Platelet Count 265 10x3/uL (130-400); RBC Distribution Width 14.6 % (11.5-14.5); Red Blood Cell (RBC) Count 3.51 mill/uL (4.20-5.40)
[2023-08-18] MEDS: Silver Sulfadiazine 50 GM TUBE TOP SCH ×2 (08:55→20:54)
[2023-08-18 09:12] LABS: Phosphorus 2.2 mg/dL (2.3-4.7)
[2023-08-18 09:16] LABS: Anion Gap 12 mmol/L (10-20); BUN (Urea Nitrogen) 6 mg/dL (9.8-20.1); Calc. Creatinine Clearance 51 mL/min (70-130); Calcium 9.1 mg/dL (7.8-10.44); Carbon Dioxide 23 mmol/L (23-31); Chloride 103 mmol/L (98-107); Estimated GFR 77; Glucose 121 mg/dL (83-110); Magnesium 1.5 mg/dL (1.6-2.6); Sodium 134 mmol/L (136-145)
[2023-08-18] MEDS: Montelukast Sodium 10 mg Tablet PO SCH (20:52)
[2023-08-18] MEDS: Acetaminophen 325 MG TAB PO PRN (20:52)
[2023-08-18] MEDS: Mirtazapine 15 MG TAB PO SCH (20:52)
[2023-08-19] MEDS: Metoclopramide HCl 10 MG (2 mL) VIAL IVP SCH ×5 (02:36→23:44)
[2023-08-19 06:31] LABS: #Basophils 0.1 thou/uL (0.0-0.2); #Eosinphils 0.3 thou/uL (0.0-0.7); #Monocytes 0.7 thou/uL (0.11-0.59); #Neutrophils 2.4 thou/uL (1.40-6.50); %Basophils 1.3 % (0.0-1.0); %Eosinophils 6.9 % (0.0-10.0); %Lymphocytes 25.3 % (21.0-51.0); %Monocytes 14.3 % (0.0-10.0); %Neutrophils 51.8 % (42.0-75.0); Hematocrit 35.7 % (36.0-47.0); Hemoglobin 11.1 g/dL (12.0-16.0); Mean Corpuscular HGB CONC 31.1 g/dL (32.0-36.0); Mean Corpuscular Hemoglobin 28.5 pg (27.0-31.0); Mean Corpuscular Volume 91.8 fl (78.0-98.0); Mean Platelet Volume 10.1 fL (7.4-10.4); Platelet Count 302 10x3/uL (130-400); RBC Distribution Width 14.8 % (11.5-14.5); Red Blood Cell (RBC) Count 3.89 mill/uL (4.20-5.40); White Blood Cell (WBC) Count 4.6 10x3/uL (4.8-10.8)
[2023-08-19] MEDS: Ondansetron PF 4 MG/2 ML Vial IVP SCH ×3 (06:49→20:42)
[2023-08-19] MEDS: NS 0.9% w/ 40 MEQ KCL 1,000 ML IV SCH (06:50)
[2023-08-19 07:00] LABS: Anion Gap 11 mmol/L (10-20); BUN (Urea Nitrogen) 4 mg/dL (9.8-20.1); Calc. Creatinine Clearance 53 mL/min (70-130); Calcium 9.1 mg/dL (7.8-10.44); Carbon Dioxide 25 mmol/L (23-31); Chloride 102 mmol/L (98-107); Estimated GFR 80; Glucose 89 mg/dL (83-110); Magnesium 1.1 mg/dL (1.6-2.6); Potassium 4.3 mmol/L (3.5-5.1); Sodium 134 mmol/L (136-145)
[2023-08-19] MEDS: Mometasone 200 MCG HFA INHALER (RT USE) INH SCH ×2 (07:30→20:17)
[2023-08-19] MEDS ORDERED: Magnesium Sulfate In Water 4 GM in Premix 1 BAG IVPB SCH (08:00)
[2023-08-19] MEDS: Megestrol Acetate 800 MG/20 ML UDCUP PO SCH ×3 (08:11→20:41)
[2023-08-19] MEDS: NIFEdipine XL 30 MG ER.TAB PO SCH (08:12)
[2023-08-19] MEDS: Rivaroxaban 10 MG TAB PO SCH (08:12)
[2023-08-19] MEDS: Magnesium Oxide 400 MG TAB PO SCH ×2 (08:12→20:42)
[2023-08-19] MEDS: Escitalopram Oxalate 10 mg Tablet PO SCH (08:12)
[2023-08-19] MEDS: Pantoprazole 40 MG VIAL IVP SCH ×2 (08:12→20:42)
[2023-08-19] MEDS: Silver Sulfadiazine 50 GM TUBE TOP SCH ×2 (08:16→20:42)
[2023-08-19] MEDS: Montelukast Sodium 10 mg Tablet PO SCH (20:41)
[2023-08-19] MEDS: Mirtazapine 15 MG TAB PO SCH (20:41)
[2023-08-19] MEDS: Acetaminophen 325 MG TAB PO PRN (20:42)
[2023-08-20] MEDS: Ondansetron PF 4 MG/2 ML Vial IVP SCH ×3 (05:40→21:01)
[2023-08-20] MEDS: NS 0.9% w/ 40 MEQ KCL 1,000 ML IV SCH ×2 (05:42→18:28)
[2023-08-20] MEDS: Metoclopramide HCl 10 MG (2 mL) VIAL IVP SCH ×3 (05:42→18:28)
[2023-08-20 06:53] LABS: #Basophils 0.1 thou/uL (0.0-0.2); #Eosinphils 0.3 thou/uL (0.0-0.7); #Monocytes 0.7 thou/uL (0.11-0.59); #Neutrophils 2.8 thou/uL (1.40-6.50); %Eosinophils 6.7 % (0.0-10.0); %Lymphocytes 24.4 % (21.0-51.0); %Neutrophils 54.5 % (42.0-75.0); Hematocrit 35.3 % (36.0-47.0); Hemoglobin 11.4 g/dL (12.0-16.0); Mean Corpuscular HGB CONC 32.3 g/dL (32.0-36.0); Mean Corpuscular Hemoglobin 28.8 pg (27.0-31.0); Mean Corpuscular Volume 89.1 fl (78.0-98.0); Mean Platelet Volume 10.5 fL (7.4-10.4); Platelet Count 356 10x3/uL (130-400); RBC Distribution Width 14.8 % (11.5-14.5); Red Blood Cell (RBC) Count 3.96 mill/uL (4.20-5.40); White Blood Cell (WBC) Count 5.1 10x3/uL (4.8-10.8)
[2023-08-20 07:21] LABS: Anion Gap 12 mmol/L (10-20); BUN (Urea Nitrogen) 5 mg/dL (9.8-20.1); Calc. Creatinine Clearance 49 mL/min (70-130); Calcium 9.3 mg/dL (7.8-10.44); Carbon Dioxide 25 mmol/L (23-31); Chloride 103 mmol/L (98-107); Estimated GFR 74; Glucose 85 mg/dL (83-110); Magnesium 1.7 mg/dL (1.6-2.6); Potassium 4.4 mmol/L (3.5-5.1); Sodium 136 mmol/L (136-145)
[2023-08-20] MEDS: Mometasone 200 MCG HFA INHALER (RT USE) INH SCH ×2 (07:41→19:32)
[2023-08-20] MEDS ORDERED: Magnesium 2 GM/50 ML(in water) 2 GM in Premix 1 BAG IVPB SCH (08:00)
[2023-08-20] MEDS: Rivaroxaban 10 MG TAB PO SCH (08:14)
[2023-08-20] MEDS: NIFEdipine XL 30 MG ER.TAB PO SCH (08:14)
[2023-08-20] MEDS: Magnesium Oxide 400 MG TAB PO SCH ×2 (08:15→20:49)
[2023-08-20] MEDS: Pantoprazole 40 MG VIAL IVP SCH ×2 (08:15→21:01)
[2023-08-20] MEDS: Megestrol Acetate 800 MG/20 ML UDCUP PO SCH ×2 (08:15→21:00)
[2023-08-20] MEDS: Escitalopram Oxalate 10 mg Tablet PO SCH (08:15)
[2023-08-20] MEDS: Silver Sulfadiazine 50 GM TUBE TOP SCH ×2 (08:16→21:01)
[2023-08-20] MEDS: Montelukast Sodium 10 mg Tablet PO SCH (20:49)
[2023-08-20] MEDS: Mirtazapine 15 MG TAB PO SCH (20:50)
[2023-08-20] MEDS: Acetaminophen 325 MG TAB PO PRN (21:04)
[2023-08-21] MEDS: Metoclopramide HCl 10 MG (2 mL) VIAL IVP SCH ×5 (00:54→21:28)
[2023-08-21] MEDS: Acetaminophen 325 MG TAB PO PRN ×2 (05:35→21:28)
[2023-08-21] MEDS: Ondansetron PF 4 MG/2 ML Vial IVP SCH ×3 (05:35→21:30)
[2023-08-21] MEDS: Mometasone 200 MCG HFA INHALER (RT USE) INH SCH ×2 (06:46→20:12)
[2023-08-21 07:27] LABS: #Eosinphils 0.3 thou/uL (0.0-0.7); #Monocytes 0.6 thou/uL (0.11-0.59); #Neutrophils 2.2 thou/uL (1.40-6.50); %Basophils 0.5 % (0.0-1.0); %Eosinophils 6.5 % (0.0-10.0); %Lymphocytes 24.9 % (21.0-51.0); %Monocytes 15.1 % (0.0-10.0); %Neutrophils 52.8 % (42.0-75.0); Hematocrit 35.3 % (36.0-47.0); Hemoglobin 11.3 g/dL (12.0-16.0); Mean Corpuscular Hemoglobin 28.3 pg (27.0-31.0); Mean Corpuscular Volume 88.5 fl (78.0-98.0); Mean Platelet Volume 10.2 fL (7.4-10.4); Platelet Count 318 10x3/uL (130-400); Red Blood Cell (RBC) Count 3.99 mill/uL (4.20-5.40); White Blood Cell (WBC) Count 4.2 10x3/uL (4.8-10.8)
[2023-08-21 07:58] LABS: Anion Gap 10 mmol/L (10-20); BUN (Urea Nitrogen) 6 mg/dL (9.8-20.1); Calc. Creatinine Clearance 47 mL/min (70-130); Calcium 9.2 mg/dL (7.8-10.44); Carbon Dioxide 25 mmol/L (23-31); Chloride 104 mmol/L (98-107); Estimated GFR 69; Glucose 105 mg/dL (83-110); Magnesium 1.5 mg/dL (1.6-2.6); Potassium 4.3 mmol/L (3.5-5.1); Sodium 135 mmol/L (136-145)
[2023-08-21] MEDS: NS 0.9% w/ 40 MEQ KCL 1,000 ML IV SCH ×2 (08:59→21:26)
[2023-08-21] MEDS ORDERED: Magnesium 2 GM/50 ML(in water) 2 GM in Premix 1 BAG IVPB SCH (09:00)
[2023-08-21] MEDS: Rivaroxaban 10 MG TAB PO SCH (09:01)
[2023-08-21] MEDS: Pantoprazole 40 MG VIAL IVP SCH ×2 (09:01→21:27)
[2023-08-21] MEDS: Escitalopram Oxalate 10 mg Tablet PO SCH (09:02)
[2023-08-21] MEDS: Magnesium Oxide 400 MG TAB PO SCH ×2 (09:02→21:35)
[2023-08-21] MEDS: NIFEdipine XL 30 MG ER.TAB PO SCH (09:02)
[2023-08-21] MEDS: Megestrol Acetate 800 MG/20 ML UDCUP PO SCH ×2 (09:03→21:27)
[2023-08-21] MEDS: Silver Sulfadiazine 50 GM TUBE TOP SCH ×2 (09:13→21:29)
[2023-08-21] MEDS: Mirtazapine 15 MG TAB PO SCH (21:28)
[2023-08-21] MEDS: Montelukast Sodium 10 mg Tablet PO SCH (21:28)
[2023-08-22] MEDS: Metoclopramide HCl 10 MG (2 mL) VIAL IVP SCH ×2 (06:47→13:25)
[2023-08-22] MEDS: Ondansetron PF 4 MG/2 ML Vial IVP SCH ×2 (06:47→13:26)
[2023-08-22] MEDS: Mometasone 200 MCG HFA INHALER (RT USE) INH SCH (08:09)
[2023-08-22] MEDS: Rivaroxaban 10 MG TAB PO SCH (08:40)
[2023-08-22] MEDS: NIFEdipine XL 30 MG ER.TAB PO SCH (08:40)
[2023-08-22] MEDS: Escitalopram Oxalate 10 mg Tablet PO SCH (08:40)
[2023-08-22] MEDS: Magnesium Oxide 400 MG TAB PO SCH (08:40)
[2023-08-22] MEDS: Pantoprazole 40 MG VIAL IVP SCH (08:41)
[2023-08-22] MEDS: Silver Sulfadiazine 50 GM TUBE TOP SCH (08:42)
[2023-08-22] MEDS: Megestrol Acetate 800 MG/20 ML UDCUP PO SCH (08:42)
[2023-08-22] MEDS: Acetaminophen 325 MG TAB PO PRN (08:46)
[2023-08-22 10:12] LABS: #Eosinphils 0.2 thou/uL (0.0-0.7); #Monocytes 0.6 thou/uL (0.11-0.59); #Neutrophils 2.7 thou/uL (1.40-6.50); %Basophils 0.9 % (0.0-1.0); %Lymphocytes 22.5 % (21.0-51.0); %Monocytes 12.3 % (0.0-10.0); %Neutrophils 58.9 % (42.0-75.0); Hemoglobin 11.1 g/dL (12.0-16.0); Mean Corpuscular HGB CONC 31.7 g/dL (32.0-36.0); Mean Corpuscular Volume 91.4 fl (78.0-98.0); Mean Platelet Volume 10.5 fL (7.4-10.4); Platelet Count 349 10x3/uL (130-400); RBC Distribution Width 15.5 % (11.5-14.5); Red Blood Cell (RBC) Count 3.83 mill/uL (4.20-5.40); White Blood Cell (WBC) Count 4.6 10x3/uL (4.8-10.8)
[2023-08-22 10:43] LABS: Anion Gap 11 mmol/L (10-20); BUN (Urea Nitrogen) 8 mg/dL (9.8-20.1); Calc. Creatinine Clearance 40 mL/min (70-130); Calcium 9.4 mg/dL (7.8-10.44); Carbon Dioxide 24 mmol/L (23-31); Chloride 104 mmol/L (98-107); Estimated GFR 58; Glucose 107 mg/dL (83-110); Magnesium 1.5 mg/dL (1.6-2.6); Potassium 4.2 mmol/L (3.5-5.1); Sodium 135 mmol/L (136-145)
[2023-08-22] MEDS ORDERED: Sodium Chloride 0.9% 1,000 ML IV SCH (12:00)
[2023-08-22] MEDS ORDERED: Magnesium 2 GM/50 ML(in water) 2 GM in Premix 1 BAG IVPB SCH (12:00)
[2023-08-22 16:39] VITALS: BP 133/81; TEMP 97.8
== END 2023-08-22 18:43 | DRG 371 ==
LOC: ERS 12:13 → T4-B 19:13 → OBSVTOIN 08-01 10:36
PROVIDERS: ADMIT Student in an Organized Health Care Education/Training Program; ATTEND Hospitalist
PROC: 0DB18ZX Excision of Upper Esophagus, Via Natural or Artificial Opening Endoscopic, Diagnostic (ICD-10-PCS; principal; 2023-08-07)
PROC: 0DB78ZX Excision of Stomach, Pylorus, Via Natural or Artificial Opening Endoscopic, Diagnostic (ICD-10-PCS; 2023-08-07)
PROC: 3E0336Z Introduction of Nutritional Substance into Peripheral Vein, Percutaneous Approach (ICD-10-PCS; 2023-08-12)
DX: A04.72 Enterocolitis due to Clostridium difficile, not specified as recurrent (principal); E43 Unspecified severe protein-calorie malnutrition; E87.1 Hypo-osmolality and hyponatremia; N17.9 Acute kidney failure, unspecified; E87.6 Hypokalemia; M19.90 Unspecified osteoarthritis, unspecified site; E11.9 Type 2 diabetes mellitus without complications; I10 Essential (primary) hypertension; E78.5 Hyperlipidemia, unspecified; G89.29 Other chronic pain; E86.0 Dehydration; F32.A Depression, unspecified; J45.30 Mild persistent asthma, uncomplicated; K20.90 Esophagitis, unspecified without bleeding; K29.80 Duodenitis without bleeding; E83.42 Hypomagnesemia; E83.39 Other disorders of phosphorus metabolism; K44.9 Diaphragmatic hernia without obstruction or gangrene; R62.7 Adult failure to thrive; Z88.0 Allergy status to penicillin; Z79.51 Long term (current) use of inhaled steroids; Z79.899 Other long term (current) drug therapy; Z98.890 Other specified postprocedural states; Z90.710 Acquired absence of both cervix and uterus; Z90.49 Acquired absence of other specified parts of digestive tract; Z86.73 Personal history of transient ischemic attack (TIA), and cerebral infarction without residual deficits; Z68.22 Body mass index [BMI] 22.0-22.9, adult
CPT/HCPCS: 36415; 36416; 70450; 70551; 71045; 74177; 80048; 80053; 80061; 80076; 80400; 81001; 83605; 83690; 83735; 84100; 84484; 85025; 85027; 87324; 87449; 88305; 88342; 93005; 93010; 94664; 96361; 96374; 96375; C9113; J0360; J0780; J0834; J1100; J1200; J1815; J2060; J2405; J2704; J2765; J3475; J3480; J7030; J7050; Q0169; Q0177; Q9967

== ENCOUNTER 2024-10-12 10:48 | Emergency (ER) | payer MEDICARE ==
[2024-10-12] MEDS ORDERED: Iopamidol-370 76% 500 ML MDV (1 ML CHARGE) ONE (11:00)
[2024-10-12] MEDS ORDERED: Ondansetron PF 4 MG/2 ML Vial ONE (11:02)
[2024-10-12 11:24] LABS: #Basophils 0.06 10x3/uL (0.0-0.2); %Basophils 0.9 % (0.0-1.0); %Eosinophils 2.1 % (0.0-10.0); %Lymphocytes 21.8 % (21.0-51.0); %Monocytes 8.8 % (0.0-10.0); %Neutrophils 66.1 % (42.0-75.0); Hematocrit 42.1 % (36.0-47.0); Hemoglobin 14.4 g/dL (12.0-16.0); Mean Corpuscular HGB CONC 34.2 g/dL (32.0-36.0); Mean Corpuscular Hemoglobin 30.2 pg (27.0-31.0); Mean Corpuscular Volume 88.3 fL (78.0-98.0); Platelet Count 261 10x3/uL (130-400); RBC Distribution Width 12.8 % (11.5-14.5); Red Blood Cell (RBC) Count 4.77 mill/uL (4.20-5.40)
[2024-10-12 11:46] LABS: ALT (SGPT) 15 U/L (Less than 34); AST (SGOT) 31 U/L (11-34); Albumin 3.5 g/dL (3.1-4.5); Alkaline Phosphatase 75 U/L (40-110); Anion Gap 18 mmol/L (10-20); BUN (Urea Nitrogen) 12 mg/dL (9.8-20.1); Bilirubin, Total 1.6 mg/dL (0.3-1.2); Calc. Creatinine Clearance 0 mL/min (70-130); Calcium 10.3 mg/dL (7.8-10.44); Carbon Dioxide 20 mmol/L (23-31); Chloride 100 mmol/L (98-107); Estimated GFR 50; Globulin 4.1 g/dL (2.4-3.5); Glucose 111 mg/dL (83-110); Lipase 42 U/L (8-78); Magnesium 1.7 mg/dL (1.6-2.6); Potassium 3.8 mmol/L (3.5-5.1); Protein, Total 7.6 g/dL (5.8-8.1); Sodium 134 mmol/L (136-145)
[2024-10-12 14:39] LABS: Bacteria/HPF None Seen HPF (None Seen); Bilirubin Negative (Negative); Blood, Urine Negative (Negative); CAUTI Indications for Culture Pelvic or flank pain; Clarity Clear (Clear); Glucose, Urine (Dipstick) Normal (Negative); Ketone, Urine Negative (Negative); Leukocyte Negative Leu/uL (Negative); Nitrite Negative (Negative); Protein, Urine (Dipstick) Negative (Neg-Trace); RBC/HPF None Seen HPF (0-3); Squamous Epithelial None Seen HPF (0-3); Urobilinogen Normal mg/dL (Less than 2); WBC/HPF None Seen HPF (0-3); pH, Urine 7.5 (5.0-9.0)
[2024-10-12 14:43] LABS: Specific Gravity, Urine 1.045 (1.002-1.036); Urine Culture Reflex No No
== END 2024-10-12 15:00 | disposition home or self-care (01) ==
LOC: ERS 10:48
DX: K52.9 Noninfective gastroenteritis and colitis, unspecified (principal); R11.2 Nausea with vomiting, unspecified; I10 Essential (primary) hypertension; E11.9 Type 2 diabetes mellitus without complications; Z86.73 Personal history of transient ischemic attack (TIA), and cerebral infarction without residual deficits
CPT/HCPCS: 74177; 80053; 81001; 83690; 83735; 85025; 87086; 96374; 99284; J2405; Q9967